=== PATIENT | female | born 1965 | race American Indian/Alaskan Native ===

== ENCOUNTER 2017-06-13 16:18 | Inpatient (IN) | payer MEDICARE, SELFPAY ==
[2017-06-13 16:18] VITALS: BMI 27.6
--- NOTE | 2017-06-13 17:36 | ED PDOC ---
HPI: Abdomen Chief Complaint (Provider): abdominal pain, back pain, vomiting History Per: Patient, Family History/Exam Limitations: no limitations Onset/Duration Of Symptoms: Days (2), Gradual Current Symptoms Are (Timing): Still Present Context: Food Location Of Pain/Discomfort: RUQ, LLQ, Other (back) Quality Of Discomfort: Sharp Associated Symptoms: Chills, Nausea, Loss Of Appetite, Back Pain, Urinary Symptoms. denies: Diarrhea Exacerbating Factors: None Alleviating Factors: None Last Bowel Movement: Days Ago (3) <Arnaud Lam III - Last Filed: 06/13/17 20:03> <Leland Rivas - Last Filed: 06/13/17 20:10> Time Seen by Provider: 06/13/17 16:45 Chief Complaint (Nursing): Abdominal Pain Additional Complaint(s): 51yo female c/o abdominal pain and distension, constipation, back pain and nausea starting yesterday afternoon. States currently on day 14 of oral antibiotic for UTI. Denies fever. Also notes "dizziness around the eyes". Denies change vision, headache or syncope. (Arnaud Lam III) Past Medical History Reviewed: Historical Data, Nursing Documentation, Vital Signs - Medical History PMH: Arthritis, Asthma, Depression, HTN, Personality Disorder, Schizophrenia ( on monthly invega), Sleep Apnea Denies: Diabetes, HIV, Chronic Kidney Disease, Seizures, Sexually Transmitted Disease - Surgical History Surgical History: Cholecystectomy (2 years ago) Other surgeries: scoliosis - Family History Family History: States: Unknown Family Hx - Living Arrangements Living Arrangements: With Family - Social History Current smoker - smoking cessation education provided: No Alcohol: None <Arnaud Lam III - Last Filed: 06/13/17 20:03> <Leland Rivas - Last Filed: 06/13/17 20:10> Vital Signs: Last Vital Signs Temp 100.5 F H 06/13/17 16:30 Pulse 134 H 06/13/17 16:30 Resp 18 06/13/17 16:30 BP 135/76 06/13/17 16:30 Pulse Ox 97 06/13/17 20:04 - Home Medications Home Medications: Ambulatory Orders Medication Instructions Recorded Acetaminophen [Tylenol 325mg tab] 500 mg PO Q6 PRN 06/13/17 Benztropine [Cogentin] 0.5 mg PO DAILY 06/13/17 Clonazepam [Klonopin] 0.5 mg PO DAILY 06/13/17 Duloxetine HCl [Duloxetine HCl] 60 mg PO DAILY 06/13/17 Esomeprazole Magnesium [Nexium] 40 mg PO DAILY 06/13/17 Meloxicam [Mobic] 15 mg PO DAILY 06/13/17 Montelukast Sodium [Singulair] 10 mg PO DAILY 06/13/17 Pregabalin [Lyrica] 50 mg PO BID 06/13/17 Salmeterol Xinafoate/Fluticaso 2 puff IH DAILY 06/13/17 [Advair Hfa 115/21] Sulfamethoxazole/Trimethoprim 160 - 800 mg PO BID 06/13/17 [Sulfamethoxazole-Tmp Ss Tablet] Tramadol HCl [Ultram] 50 mg PO TID PRN 06/13/17 amLODIPine [Norvasc] 5 mg PO DAILY 06/13/17 - Allergies Allergies/Adverse Reactions: Allergies Allergy/AdvReac Type Severity Reaction Status Date / Time Penicillins Allergy Unknown RASH Verified 06/13/17 16:32 Review of Systems Constitutional: Positive for: Malaise. Negative for: Fever, Chills ENT: Negative for: Nose Discharge, Throat Pain Cardiovascular: Negative for: Chest Pain, Palpitations Respiratory: Negative for: Cough, Shortness of Breath Gastrointestinal: Positive for: Nausea, Vomiting, Abdominal Pain, Constipation. Negative for: Diarrhea Genitourinary Female: Positive for: Dysuria, Hematuria Musculoskeletal: Positive for: Back Pain. Negative for: Neck Pain, Arm Pain, Leg Pain Skin: Negative for: Rash, Lesions, Jaundice Neurological: Positive for: Dizziness. Negative for: Weakness, Numbness, Altered Mental Status, Headache Psych: Negative for: Depression <Arnaud Lam III - Last Filed: 06/13/17 20:03> Physical Exam - Reviewed Nursing Documentation Reviewed: Yes Vital Signs Reviewed: Yes - Physical Exam Appears: Positive for: Well, Non-toxic, No Acute Distress Head Exam: Positive for: ATRAUMATIC, NORMAL INSPECTION, NORMOCEPHALIC Skin: Positive for: Normal Color, Warm, DRY Eye Exam: Positive for: EOMI, PERRL, Other (mild exopthalmos, mild injection b/l ). Negative for: Periorbital tenderness ENT: Positive for: Normal ENT Inspection Neck: Positive for: Normal, Painless ROM Cardiovascular/Chest: Positive for: Regular Rate, Rhythm Respiratory: Positive for: CNT, Normal Breath Sounds Gastrointestinal/Abdominal: Positive for: Tenderness, Distended. Negative for: Hernia Back: Positive for: L CVA Tenderness, R CVA Tenderness Extremity: Positive for: Normal ROM Neurologic/Psych: Positive for: Alert, Oriented. Negative for: Motor/Sensory Deficits <Arnaud Lam III - Last Filed: 06/13/17 20:03> - Laboratory Results Result Diagrams: 06/13/17 17:35 06/13/17 17:35 - ECG O2 Sat by Pulse Oximetry: 97 <Arnaud Lam III - Last Filed: 06/13/17 20:03> - Laboratory Results Result Diagrams: 06/13/17 17:35 06/13/17 17:35 <Leland Rivas - Last Filed: 06/13/17 20:10> Medical Decision Making <Arnaud Lam III - Last Filed: 06/13/17 20:03> <Leland Rivas - Last Filed: 06/13/17 20:10> Medical Decision Making: workup for abd pain w low grade fever initiated bloodwork, VBG, cultures, CXR, Abd pelv CT and IVF initiated 19:00 Patient will be signed out to Dr. Rivas pending CT. (Anraud Lam III) Disposition - Patient ED Disposition Is Patient to be Admitted: Transfer of Care - Disposition Disposition: Transfer of Care Disposition Time: 19:07 Patient Signed Over To: Leland Rivas Handoff Comments: pending CT and urine results <Arnaud Lam III - Last Filed: 06/13/17 20:03> <Leland Rivas - Last Filed: 06/13/17 20:10> - Clinical Impression Clinical Impression: Abdominal pain - Disposition Forms: [place] ([place])
[2017-06-13 17:54] LABS: ALBUMIN 3.4 g/dL (3.5-5.0); ALT/SGPT 29 U/L (9-52); AST/SGOT 16 U/L (14-36); BLOOD UREA NITROGEN 16 mg/dl (7-17); CALCIUM 8.8 mg/dL (8.4-10.2); GFR AFRICAN-AMERICAN > 60; GFR NON-AFRICAN AMERICAN 58; LIPASE 24 U/L (23-300)
[2017-06-13 18:03] LABS: BASO % 0.4 % (0.0-2.0); EOS # 0.1 K/uL (0.0-0.7); EOS % 1.8 % (0.0-4.0); HEMOGLOBIN 11.7 g/dL (12.0-16.0); LYMPH # 0.4 K/uL (1.0-4.3); LYMPH % 5.3 % (20.0-40.0); MEAN CELL VOLUME 77.4 fl (81.0-99.0); MEAN CORPUSCULAR HEMOGLOBIN 24.7 pg (27.0-31.0); MEAN CORPUSCULAR HGB CONC 31.9 g/dL (33.0-37.0); MEAN PLATELET VOLUME 8.4 fl (7.2-11.7); MONO # 0.5 K/uL (0.0-0.8); MONO % 6.1 % (0.0-10.0); NEUT % 86.4 % (50.0-75.0); PLATELET COUNT 346 K/uL (130-400); RBC 4.74 Mil/uL (3.80-5.20); WHITE BLOOD COUNT 8.1 K/uL (4.8-10.8)
[2017-06-13 18:08] LABS: INR 1.2 (0.9-1.2); PARTIAL THROMBOPLASTIN TIME 31.3 Seconds (25.6-37.1); PROTHROMBIN TIME 13.1 Seconds (9.8-13.1)
[2017-06-13] MEDS ORDERED: Sodium Chloride 0.9% 100 ML ONE (18:29)
[2017-06-13] MEDS ORDERED: Iohexol 300 100 ML IJ ONE (18:29)
[2017-06-13 19:23] LABS: GRANULAR CAST 2 /lpf (0-1); SQUAMOUS EPITHIAL 8 /hpf (0-5); URINE BILIRUBIN NEGATIVE (NEGATIVE); URINE BLOOD NEGATIVE (NEGATIVE); URINE CLARITY CLOUDY (Clear); URINE COLOR AMBER (YELLOW); URINE GLUCOSE (UA) NEG (Normal); URINE LEUKOCYTE ESTERASE MOD Leu/uL (Negative); URINE PROTEIN 30 mg/dL (NEGATIVE)
[2017-06-13 20:06] LABS: VENOUS BLOOD GAS BASE EXCESS -0.5 mmol/L (0.0-2.0); VENOUS BLOOD GAS PCO2 39 mmHg (40-60); VENOUS BLOOD GAS PO2 40 mm/Hg (30-55)
--- NOTE | 2017-06-13 20:11 | ED PDOC ---
"- Laboratory Results Result Diagrams: 06/13/17 17:35 06/13/17 17:35 - ECG O2 Sat by Pulse Oximetry: 97 Medical Decision Making Medical Decision Makin:00 Patient transfer to nm by Dr. Lam pending CT. 20:30 EXAM: CT Abdomen and Pelvis With Intravenous Contrast EXAM DATE/TIME: 06/13/2017 4:56 PM CLINICAL HISTORY: 51 years old, female; Pain; Abdominal pain; Generalized; Additional info: Back pain, abd distension vomiting, constipation TECHNIQUE: Axial computed tomography images of the abdomen and pelvis with intravenous contrast. All CT scans at this facility use one or more dose reduction techniques, viz.: automated exposure control; ma/kV adjustment per patient size (including targeted exams where dose is matched to indication; i.e. head); or iterative reconstruction technique. Coronal and sagittal reformatted images were created and reviewed. CONTRAST: 95 mL of omnipaque 300 administered intravenously. COMPARISON: Prior CT abdomen and pelvis of 2011-11-19. FINDINGS: LIMITATIONS: Streak artifact from metallic hardware in the spine. LOWER THORAX: Moderate right pleural effusion, a new finding, incompletely seen. Small left pleural effusion, a new finding. Small pericardial effusion, a new finding. No evidence of diffuse pulmonary vascular congestion. ABDOMEN: LIVER: Fatty infiltration of the liver. GALLBLADDER AND BILE DUCTS: Cholecystectomy clips. PANCREAS: No CT evidence of acute pancreatitis. SPLEEN: No acute abnormality of the spleen identified. ADRENALS: No acute abnormality of the adrenal glands identified. KIDNEYS AND URETERS: No acute abnormality of the kidneys identified. No evidence of significant hydrouereteronephrosis. ELEUTERIO RAMIREZ | Final Radiology Report CONFIDENTIALITY STATEMENT This report is intended only for use by the referring physician, and only in accordance with law. If you received this in error, call [phone]. Page 2 of 2 STOMACH AND BOWEL: Stool is noted throughout the right colon, which is top normal in caliber to mildly dilated. No definite transition point is seen, and the findings are most likely secondary to fecal retention/constipation. Colonic diverticulosis, with no evidence of acute diverticulitis. Otherwise, no significant abnormality of the bowel is identified. No evidence of small bowel obstruction. No acute abnormality of the stomach or duodenum identified. APPENDIX: Appendix is seen, and is within normal limits in appearance. PELVIS: BLADDER: Diffuse thickening of the bladder wall. REPRODUCTIVE: Again seen is diffuse uterine enlargement, with an appearance most compatible with multiple uterine fibroids. The largest of these is a posterior fibroid, measuring 7.4 x 6.2 cm. No evidence of large adnexal masses. ABDOMEN and PELVIS: INTRAPERITONEAL SPACE: No evidence of free intraperitoneal air or fluid. BONES/JOINTS: Metallic fixation hardware in the thoracic and lumbar spine. Chronic post operative changes involving the left iliac bone. SOFT TISSUES: No acute abnormality of the visualized soft tissues is seen. VASCULATURE: No evidence of abdominal aortic aneurysm. No evidence of periaortic hemorrhage. LYMPH NODES: No evidence of diffuse lymphadenopathy. IMPRESSION: - Moderate right pleural effusion. There are also small pericardial and left pleural effusions. - Bladder wall thickening. This is a nonspecific finding, but can be seen with cystitis. Recommend clinical correlation. - Otherwise, no evidence of significant acute process. - Colonic findings which are most likely secondary to fecal retention/ constipation. - See above for remaining findings. Thank you for allowing us to participate in the care of your patient. Dictated and Authenticated by: Francy Puente MD 06/13/2017 8:39 PM Eastern Time ([place] & [place]) Patient states she does have cough and congestion but denies CP/SOB, currently has not symptoms of cardiac effusion and certainly not tamponade, however patient also has pleural effusions. Patient also has cystitis on CT and UTI on UA, will give levoquin to cover. Patient has fever, tachycardia, and source, therefore septic, however has normal lactate. Will admit for further workup, possibly pleural effusion and pericardial effusion are due to autoimmune rather than infectious process? Unclear at htis time. Will admit to family practice service. Disposition - Clinical Impression Clinical Impression: UTI (urinary tract infection), Sepsis, Pleural effusion - POA Present On Arrival: None - Disposition Disposition: Hospitalized as Observation Patient Disposition Time: 20:40 Condition: FAIR"
--- NOTE | 2017-06-13 20:39 | CT ---
EXAM: CT Abdomen and Pelvis With Intravenous Contrast EXAM DATE/TIME: 06/13/2017 4:56 PM CLINICAL HISTORY: 51 years old, female; Pain; Abdominal pain; Generalized; Additional info: Back pain, abd distension vomiting, constipation TECHNIQUE: Axial computed tomography images of the abdomen and pelvis with intravenous contrast. All CT scans at this facility use one or more dose reduction techniques, viz.: automated exposure control; ma/kV adjustment per patient size (including targeted exams where dose is matched to indication; i.e. head); or iterative reconstruction technique. Coronal and sagittal reformatted images were created and reviewed. CONTRAST: 95 mL of omnipaque 300 administered intravenously. COMPARISON: Prior CT abdomen and pelvis of 2011-11-19. FINDINGS: LIMITATIONS: Streak artifact from metallic hardware in the spine. LOWER THORAX: Moderate right pleural effusion, a new finding, incompletely seen. Small left pleural effusion, a new finding. Small pericardial effusion, a new finding. No evidence of diffuse pulmonary vascular congestion. ABDOMEN: LIVER: Fatty infiltration of the liver. GALLBLADDER AND BILE DUCTS: Cholecystectomy clips. PANCREAS: No CT evidence of acute pancreatitis. SPLEEN: No acute abnormality of the spleen identified. ADRENALS: No acute abnormality of the adrenal glands identified. KIDNEYS AND URETERS: No acute abnormality of the kidneys identified. No evidence of significant hydrouereteronephrosis. STOMACH AND BOWEL: Stool is noted throughout the right colon, which is top normal in caliber to mildly dilated. No definite transition point is seen, and the findings are most likely secondary to fecal retention/constipation. Colonic diverticulosis, with no evidence of acute diverticulitis. Otherwise, no significant abnormality of the bowel is identified. No evidence of small bowel obstruction. No acute abnormality of the stomach or duodenum identified. APPENDIX: Appendix is seen, and is within normal limits in appearance. PELVIS: BLADDER: Diffuse thickening of the bladder wall. REPRODUCTIVE: Again seen is diffuse uterine enlargement, with an appearance most compatible with multiple uterine fibroids. The largest of these is a posterior fibroid, measuring 7.4 x 6.2 cm. No evidence of large adnexal masses. ABDOMEN and PELVIS: INTRAPERITONEAL SPACE: No evidence of free intraperitoneal air or fluid. BONES/JOINTS: Metallic fixation hardware in the thoracic and lumbar spine. Chronic post operative changes involving the left iliac bone. SOFT TISSUES: No acute abnormality of the visualized soft tissues is seen. VASCULATURE: No evidence of abdominal aortic aneurysm. No evidence of periaortic hemorrhage. LYMPH NODES: No evidence of diffuse lymphadenopathy. IMPRESSION: - Moderate right pleural effusion. There are also small pericardial and left pleural effusions. - Bladder wall thickening. This is a nonspecific finding, but can be seen with cystitis. Recommend clinical correlation. - Otherwise, no evidence of significant acute process. - Colonic findings which are most likely secondary to fecal retention/constipation. - See above for remaining findings.
[2017-06-13] MEDS ORDERED: levoFLOXacin 750 mg in D5W 150 ML BAG IVPB STA (20:46)
[2017-06-13] MEDS ORDERED: levoFLOXacin 750 mg in D5W 750 MG/150 ML BAG IVPB ONE (20:59)
[2017-06-13 21:11] LABS: ANISOCYTOSIS SLIGHT; EOSINOPHIL 3 % (0-7); LYMPHOCYTE 10 % (20-50); MICROCYTOSIS SLIGHT; MONOCYTE 7 % (0-10); NEUTROPHIL 80 % (42-75); PLATELET ESTIMATE NORMAL (NORMAL); POIKILOCYTOSIS SLIGHT; TOTAL CELLS COUNTED 100
[2017-06-13 21:12] LABS: HYPOCHROMIC SLIGHT; OVALOCYTES SLIGHT; POLYCHROMIC SLIGHT
[2017-06-13] MEDS ORDERED: Sodium Chloride 0.9% 1,000 ML IV STA (21:13)
--- NOTE | 2017-06-13 23:49 | CP.PCM.HP ---
History of Present Illness - History of Present Illness History of Present Illness: cc: I have a UTI 51 year old female presented to ED with complaints of UTI, abdominal pain, constipation and itchy eyes. Reports she has been on antibiotics for her UTI for about 2 weeks. She has had night sweats for 2 days, dark urine, no dysuria or malodorous urine. Two day history of back and abdominal pain: left abdomen / right lateral chest wall worst. Began having nausea today.She has constipation, last BM 3 days ago, hard stools. Eyes are red and itchy for past day, 'feel swollen'. Denies allergies, no new soaps/sheets or lotions. She las saw her PMD, 06/12/2017, urine culture done while on abx negative. PMH: asthma, schizoaffective disorder-depression, HTN, chronic back pain Medications: as per med rec Allergies: penicillins Social: no etoh, tobacco or drug use Surgical Hx: scoliosis sx, cholecystectomy Family hx: father -heart disease, mother: DM, HTN Present on Admission - Present on Admission Any Indicators Present on Admission: No Review of Systems - Constitutional Constitutional: Excessive Sweating, Night Sweats. absent: Fever, Weakness - EENT Eyes: Itchy Eyes. absent: Change in Vision, Discharge Ears: absent: Ear Discharge, Tinnitus Nose/Mouth/Throat: absent: Nasal Discharge - Cardiovascular Cardiovascular: Chest Pain (right lateral chest). absent: Dyspnea, Leg Edema, Rapid Heart Rate, Syncope Additional comments: pain with deep inspiration - Respiratory Respiratory: absent: Cough, Dyspnea, Dyspnea on Exertion, Wheezing, Stridor - Gastrointestinal Gastrointestinal: Abdominal Pain (left side worst), Constipation, Nausea. absent: Diarrhea, Dysphagia, Hematochezia, Vomiting - Integumentary Integumentary: absent: Rash - Neurological Neurological: absent: Confusion, Dizziness, Memory Loss, Syncope, Vertigo, Weakness Past Patient History - Infectious Disease Hx of Infectious Diseases: None - Past Medical History & Family History Past Medical History?: Yes Past Family History: Reviewed and not pertinent - Past Social History Smoking Status: Never Smoked Alcohol: None Drugs: Denies - CARDIAC Hx Cardiac Disorders: Yes - PULMONARY Hx Respiratory Disorders: Yes - NEUROLOGICAL Hx Seizures: No - HEENT Hx HEENT Problems: No - RENAL Hx Chronic Kidney Disease: No - ENDOCRINE/METABOLIC Hx Endocrine Disorders: No - HEMATOLOGICAL/ONCOLOGICAL Hx Human Immunodeficiency Virus (HIV): No - INTEGUMENTARY Hx Dermatological Problems: No - MUSCULOSKELETAL/RHEUMATOLOGICAL Hx Arthritis: Yes - GASTROINTESTINAL Hx Gastrointestinal Disorders: No - GENITOURINARY/GYNECOLOGICAL Hx Sexually Transmitted Disorders: No - PSYCHIATRIC Hx Psychophysiologic Disorder: Yes - SURGICAL HISTORY Hx Cholecystectomy: Yes (2 years ago) - ANESTHESIA Hx Anesthesia: Yes Hx Anesthesia Reactions: No Meds Allergies/Adverse Reactions: Allergies Allergy/AdvReac Type Severity Reaction Status Date / Time Penicillins Allergy Unknown RASH Verified 06/13/17 16:32 Physical Exam - Constitutional Appears: Well, Non-toxic, No Acute Distress - Head Exam Head Exam: ATRAUMATIC, NORMAL INSPECTION, NORMOCEPHALIC - Eye Exam Eye Exam: Conjunctival injection - ENT Exam ENT Exam: Mucous Membranes Moist - Neck Exam Neck exam: Positive for: Normal Inspection. Negative for: Lymphadenopathy - Respiratory Exam Respiratory Exam: Decreased Breath Sounds (right lung base, left lung base), Clear to Auscultation Bilateral, NORMAL BREATHING PATTERN. absent: Rhonchi, Wheezes, Respiratory Distress - Cardiovascular Exam Cardiovascular Exam: Tachycardia, REGULAR RHYTHM, +S1, +S2. absent: Clicks, JVD , Rubs - GI/Abdominal Exam GI & Abdominal Exam: Normal Bowel Sounds, Soft. absent: Guarding, Organomegaly , Rebound, Tenderness Additional comments: typmanic to percussion - Extremities Exam Extremities exam: Negative for: pedal edema, tenderness - Back Exam Back exam: CVA tenderness (L) (mild) - Neurological Exam Neurological exam: Alert, CN II-XII Intact, Oriented x3 Results - Vital Signs Recent Vital Signs: Last Vital Signs Temp 99.1 F 06/13/17 22:44 Pulse 101 H 06/13/17 22:44 Resp 18 06/13/17 22:44 BP 124/74 06/13/17 22:44 Pulse Ox 96 06/13/17 22:44 - Labs Result Diagrams: 06/13/17 17:35 06/13/17 17:35 Labs: Laboratory Results - last 24 hr 06/13/17 06/13/17 06/13/17 17:35 17:35 17:35 WBC 8.1 RBC 4.74 Hgb 11.7 L Hct 36.7 MCV 77.4 L MCH 24.7 L MCHC 31.9 L RDW 15.0 H Plt Count 346 MPV 8.4 Neut % (Auto) 86.4 H Lymph % (Auto) 5.3 L [place] % (Auto) 6.1 Eos % (Auto) 1.8 Baso % (Auto) 0.4 Neut # (Auto) 7.0 Lymph # (Auto) 0.4 L [place] # (Auto) 0.5 Eos # (Auto) 0.1 Baso # (Auto) 0.0 Neutrophils % (Manual) 80 H Lymphocytes % (Manual) 10 L Monocytes % (Manual) 7 Eosinophils % (Manual) 3 Platelet Estimate Normal Polychromasia Slight Hypochromasia (manual) Slight Poikilocytosis (manual Slight Anisocytosis (manual) Slight Microcytosis (manual) Slight Ovalocytes Slight PT 13.1 INR 1.2 APTT 31.3 pO2 VBG pH VBG pCO2 VBG HCO3 VBG Total CO2 VBG O2 Sat (Calc) VBG Base Excess VBG Potassium Glucose Lactate FiO2 Sodium 140 Potassium 3.8 Chloride 106 Carbon Dioxide 22 Anion Gap 16 BUN 16 Creatinine 1.0 Est GFR ( Amer) > 60 Est GFR (Non-Af Amer) 58 Random Glucose 127 H Calcium 8.8 Total Bilirubin 0.5 AST 16 ALT 29 Alkaline Phosphatase 85 Troponin I Total Protein 6.9 Albumin 3.4 L Globulin 3.5 Albumin/Globulin Ratio 1.0 Lipase 24 TSH 3rd Generation Venous Blood Potassium Urine Color Urine Clarity Urine pH Ur Specific [place] Urine Protein Urine Glucose (UA) Urine Ketones Urine Blood Urine Nitrate Urine Bilirubin Urine Urobilinogen Ur Leukocyte Esterase Urine RBC (Auto) Urine Microscopic WBC Ur Squamous Epith Cells Granular Casts (Auto) 06/13/17 06/13/17 06/13/17 18:54 19:33 20:10 WBC RBC Hgb Hct MCV MCH MCHC RDW Plt Count MPV Neut % (Auto) Lymph % (Auto) [place] % (Auto) Eos % (Auto) Baso % (Auto) Neut # (Auto) Lymph # (Auto) [place] # (Auto) Eos # (Auto) Baso # (Auto) Neutrophils % (Manual) Lymphocytes % (Manual) Monocytes % (Manual) Eosinophils % (Manual) Platelet Estimate Polychromasia Hypochromasia (manual) Poikilocytosis (manual Anisocytosis (manual) Microcytosis (manual) Ovalocytes PT INR APTT pO2 40 VBG pH 7.40 VBG pCO2 39 L VBG HCO3 24.1 VBG Total CO2 25.4 VBG O2 Sat (Calc) 82.2 H VBG Base Excess -0.5 L VBG Potassium 3.8 Glucose 108 H Lactate 1.4 FiO2 21.0 Sodium 137.0 Potassium Chloride 105.0 Carbon Dioxide Anion Gap BUN Creatinine Est GFR ( Amer) Est GFR (Non-Af Amer) Random Glucose Calcium Total Bilirubin AST ALT Alkaline Phosphatase Troponin I Total Protein Albumin Globulin Albumin/Globulin Ratio Lipase TSH 3rd Generation 0.63 Venous Blood Potassium 3.8 Urine Color Shyla Urine Clarity Cloudy Urine pH 5.0 Ur Specific [place] 1.031 H Urine Protein 30 Urine Glucose (UA) Neg Urine Ketones Negative Urine Blood Negative Urine Nitrate Negative Urine Bilirubin Negative Urine Urobilinogen 2.0 H Ur Leukocyte Esterase Mod Urine RBC (Auto) 3 Urine Microscopic WBC 31 H Ur Squamous Epith Cells 8 H Granular Casts (Auto) 2 06/13/17 21:00 WBC RBC Hgb Hct MCV MCH MCHC RDW Plt Count MPV Neut % (Auto) Lymph % (Auto) [place] % (Auto) Eos % (Auto) Baso % (Auto) Neut # (Auto) Lymph # (Auto) [place] # (Auto) Eos # (Auto) Baso # (Auto) Neutrophils % (Manual) Lymphocytes % (Manual) Monocytes % (Manual) Eosinophils % (Manual) Platelet Estimate Polychromasia Hypochromasia (manual) Poikilocytosis (manual Anisocytosis (manual) Microcytosis (manual) Ovalocytes PT INR APTT pO2 VBG pH VBG pCO2 VBG HCO3 VBG Total CO2 VBG O2 Sat (Calc) VBG Base Excess VBG Potassium Glucose Lactate FiO2 Sodium Potassium Chloride Carbon Dioxide Anion Gap BUN Creatinine Est GFR ( Amer) Est GFR (Non-Af Amer) Random Glucose Calcium Total Bilirubin AST ALT Alkaline Phosphatase Troponin I < 0.0120 Total Protein Albumin Globulin Albumin/Globulin Ratio Lipase TSH 3rd Generation Venous Blood Potassium Urine Color Urine Clarity Urine pH Ur Specific [place] Urine Protein Urine Glucose (UA) Urine Ketones Urine Blood Urine Nitrate Urine Bilirubin Urine Urobilinogen Ur Leukocyte Esterase Urine RBC (Auto) Urine Microscopic WBC Ur Squamous Epith Cells Granular Casts (Auto) - Imaging and Cardiology CT scan - abdomen Status: Image reviewed by me, Report reviewed by me Additional comment: FINDINGS: LIMITATIONS: Streak artifact from metallic hardware in the spine. LOWER THORAX: Moderate right pleural effusion, a new finding, incompletely seen. Small left pleural effusion, a new finding. Small pericardial effusion , a new finding. No evidence of diffuse pulmonary vascular congestion. ABDOMEN: LIVER: Fatty infiltration of the liver. GALLBLADDER AND BILE DUCTS: Cholecystectomy clips. PANCREAS: No CT evidence of acute pancreatitis. SPLEEN: No acute abnormality of the spleen identified. ADRENALS: No acute abnormality of the adrenal glands identified. KIDNEYS AND URETERS: No acute abnormality of the kidneys identified. No evidence of significant hydrouereteronephrosis. STOMACH AND BOWEL: Stool is noted throughout the right colon, which is top normal in caliber to mildly dilated. No definite transition point is seen, and the findings are most likely secondary to fecal retention/constipation. Colonic diverticulosis, with no evidence of acute diverticulitis. Otherwise, no significant abnormality of the bowel is identified. No evidence of small bowel obstruction. No acute abnormality of the stomach or duodenum identified. APPENDIX: Appendix is seen, and is within normal limits in appearance. PELVIS: BLADDER: Diffuse thickening of the bladder wall. REPRODUCTIVE: Again seen is diffuse uterine enlargement, with an appearance most compatible with multiple uterine fibroids. The largest of these is a posterior fibroid, measuring 7.4 x 6.2 cm. No evidence of large adnexal masses. ABDOMEN and PELVIS: INTRAPERITONEAL SPACE: No evidence of free intraperitoneal air or fluid. BONES/JOINTS: Metallic fixation hardware in the thoracic and lumbar spine. Chronic post operative changes involving the left iliac bone. SOFT TISSUES: No acute abnormality of the visualized soft tissues is seen. VASCULATURE: No evidence of abdominal aortic aneurysm. No evidence of periaortic hemorrhage. LYMPH NODES: No evidence of diffuse lymphadenopathy. IMPRESSION: - Moderate right pleural effusion. There are also small pericardial and left pleural effusions. - Bladder wall thickening. This is a nonspecific finding, but can be seen with cystitis. Recommend clinical correlation. - Otherwise, no evidence of significant acute process. - Colonic findings which are most likely secondary to fecal retention/constipation. - See above for remaining findings. Assessment & Plan (1) UTI (urinary tract infection) Assessment and Plan: 51 year old female admitted for failed outpatient management of UTI, pleural effusion and pericardial effusion. She has lateral chest pain, no dyspnea. Abdominal pain due to constipation vs pyelonephritis -Levaquin 750mg -Toradol for pain -zofran for nausea -echo to assess pericardial effusions -repeat cbc/bmp Status: Acute (2) Pleural effusion Assessment and Plan: moderate sized pleural effusion, etiology unknown likely to small for tap Status: Acute (3) Pericardial effusion Assessment and Plan: small pericardial effusion on CT, echo to assess effusion patient hemodynamically stable telemetry monitoring Status: Acute (4) Obesity (BMI 30.0-34.9) Status: Chronic (5) Constipation Assessment and Plan: likely chronic, possible etiology of abdominal pain -seen on CT -last BM 3 days ago -start miralax Status: Acute (6) Asthma Assessment and Plan: mild persistent, well controlled Status: Chronic (7) Prophylactic measure Assessment and Plan: lovenox for dvt prophylaxis Status: Acute
[2017-06-14 05:57] LABS: CALCIUM 8.9 mg/dL (8.4-10.2)
[2017-06-14] MEDS ORDERED: Pneumococcal 23-Valent Vaccine IM ONE (06:00)
[2017-06-14 06:08] LABS: BASO % 0.4 % (0.0-2.0); EOS # 0.2 K/uL (0.0-0.7); EOS % 4.9 % (0.0-4.0); HEMOGLOBIN 11.8 g/dL (12.0-16.0); LYMPH # 0.8 K/uL (1.0-4.3); LYMPH % 16.3 % (20.0-40.0); MEAN CELL VOLUME 77.8 fl (81.0-99.0); MEAN CORPUSCULAR HGB CONC 32.1 g/dL (33.0-37.0); MEAN PLATELET VOLUME 8.2 fl (7.2-11.7); MONO # 0.4 K/uL (0.0-0.8); MONO % 7.2 % (0.0-10.0); NEUT # 3.6 K/uL (1.8-7.0); NEUT % 71.2 % (50.0-75.0); NRBC % 0.3 % (0.0-0.0); RBC 4.72 Mil/uL (3.80-5.20); RED CELL DISTRIBUTION WIDTH 15.4 % (11.5-14.5)
[2017-06-14] MEDS ORDERED: FLUTICASONE IH SCH (09:00)
[2017-06-14] MEDS ORDERED: levoFLOXacin 750 mg in D5W 150 ML BAG IVPB SCH (09:00)
[2017-06-14] MEDS ORDERED: levoFLOXacin 750 mg in D5W 750 MG/150 ML BAG IVPB SCH (09:00)
[2017-06-14] MEDS ORDERED: SALMETEROL IH SCH (09:00)
[2017-06-14] MEDS: Enoxaparin 40 mg Syringe SC SCH (09:06)
[2017-06-14] MEDS: Pantoprazole 40 mg EC Tab PO SCH (09:07)
[2017-06-14] MEDS: Fluticasone-Salmeterol 250-50mcg Diskus IH SCH ×2 (09:08→21:40)
--- NOTE | 2017-06-14 09:56 | RAD ---
HISTORY: SOB COMPARISON: 11/21/2011 FINDINGS: LUNGS: No active pulmonary disease. PLEURA: No significant pleural effusion identified, no pneumothorax apparent. CARDIOVASCULAR: Normal. OSSEOUS STRUCTURES: Harper lidia noted. Mild thoracic dextroscoliotic curvature. VISUALIZED UPPER ABDOMEN: Normal. OTHER FINDINGS: None. IMPRESSION: No active disease.
[2017-06-14] MEDS ORDERED: Alum-Mag Hydrox-Simethicone Susp (30 mL) PO PRN ×2 (10:15)
--- NOTE | 2017-06-14 11:51 | CP.PCM.PN ---
Subjective - Date & Time of Evaluation Date of Evaluation: 06/14/17 Time of Evaluation: 08:00 - Subjective Subjective: Pt seen and examined in the am. Lethargic but arousable to voice. Reports burning epigastric abdominal pain that is radiating to the back and posterior rib pain. Denies n/v/dysuria/fever/chills/SOB/Cough. Feels constipated. No BM overnight. Objective - Vital Signs/Intake and Output Vital Signs (last 24 hours): Temp Pulse Resp BP Pulse Ox 98.6 F 11 L 20 126/79 97 06/14/17 08:00 06/14/17 09:07 06/14/17 08:00 06/14/17 09:07 06/14/17 08:00 - Medications Medications: Current Medications Al Hydrox/Mg Hydrox/Simethicone (Maalox Plus 30 Ml) 30 ml PO Q4 PRN PRN Reason: Indigestion / Heartburn Amlodipine Besylate (Norvasc) 5 mg PO DAILY [facility] Last Admin: 06/14/17 09:07 Dose: 5 mg Benztropine Mesylate (Cogentin) 0.5 mg PO DAILY [facility] Last Admin: 06/14/17 09:07 Dose: 0.5 mg Clonazepam (Klonopin) 0.5 mg PO DAILY [facility] Last Admin: 06/14/17 09:15 Dose: 0.5 mg Duloxetine HCl (Cymbalta) 60 mg PO DAILY [facility] Last Admin: 06/14/17 09:07 Dose: 60 mg Enoxaparin Sodium (Lovenox) 40 mg SC DAILY [facility] PRN Reason: Protocol Last Admin: 06/14/17 09:06 Dose: 40 mg Famotidine (Pepcid) 20 mg PO DAILY [facility] Ketorolac Tromethamine (Toradol) 15 mg IVP Q6 PRN PRN Reason: Pain, moderate (4-7) Stop: 06/17/17 22:07 Last Admin: 06/14/17 04:47 Dose: 15 mg Montelukast Sodium (Singulair) 10 mg PO DAILY [facility] Last Admin: 06/14/17 09:07 Dose: 10 mg Ondansetron HCl (Zofran Inj) 4 mg IVP Q6 PRN PRN Reason: Nausea/Vomiting Pantoprazole Sodium (Protonix Ec Tab) 40 mg PO DAILY [facility] Last Admin: 06/14/17 09:07 Dose: 40 mg Polyethylene Glycol (Miralax) 17 gm PO HS [facility] Pregabalin (Lyrica) 50 mg PO BID [facility] Last Admin: 06/14/17 09:15 Dose: 50 mg Fluticasone/Salmeterol (Advair Diskus 250/50) 1 puff IH Q12 [facility] Last Admin: 06/14/17 09:08 Dose: 1 puff Senna/Docusate Sodium (Senokot S 50 Mg-8.6 Mg) 2 tab PO HS [facility] Tramadol HCl (Ultram) 50 mg PO TID PRN PRN Reason: Pain, moderate (4-7) - Labs Labs: 06/14/17 04:20 06/14/17 04:20 PT 13.1 Seconds (9.8-13.1) 06/13/17 17:35 INR 1.2 (0.9-1.2) 06/13/17 17:35 APTT 31.3 Seconds (25.6-37.1) 06/13/17 17:35 - Constitutional Appears: Well, Non-toxic, No Acute Distress - Head Exam Head Exam: NORMAL INSPECTION - Eye Exam Eye Exam: Normal appearance - ENT Exam ENT Exam: Mucous Membranes Moist - Respiratory Exam Respiratory Exam: Clear to Ausculation Bilateral. absent: Rales, Wheezes, Stridor - Cardiovascular Exam Cardiovascular Exam: REGULAR RHYTHM, +S1, +S2. absent: Murmur - GI/Abdominal Exam GI & Abdominal Exam: Soft, Tenderness (Epigastric tenderness), Normal Bowel Sounds. absent: Distended, Guarding - Extremities Exam Extremities Exam: Normal Inspection - Back Exam Back Exam: CVA tenderness (R) - Neurological Exam Neurological Exam: Alert, Awake, Oriented x3 - Psychiatric Exam Psychiatric exam: Normal Affect - Skin Skin Exam: Normal Color Assessment and Plan - Assessment and Plan (Free Text) Assessment: 51 year old female admitted for failed outpatient management of UTI, pleural effusion and pericardial effusion. Abdominal Pain Likely related to Constipation vs GERD/Peptic Ulcer Disease -Abdominal CT- large stool burden, renal wnl, bladder wall thickening Levaquin discontinued- no urinary symptoms, fever, or leukocytosis Toradol for pain Zofran for nausea Bowel Regimen: Miralax, Senakot Rantidine Protonix Pleural Effusion Unknown etiology. Need to rule out PE moderate sized pleural effusion, etiology unknown likely to small for tap F/U CTA Pericardial Effusion small pericardial effusion on CT, echo to assess effusion patient hemodynamically stable telemetry monitoring F/U Echo HTN -C/w Norvasc, held today because BP was low Obesity (BMI 30.9) Chronic Asthma, mild persistence well controlled c/w home meds DVT ppx lovenox Diet regular Full Code
[2017-06-14] MEDS ORDERED: Sodium Chloride 0.9% 100 ML ONE (16:11)
[2017-06-14] MEDS ORDERED: Iodixanol 320 MG/ML 100 ML BOTTLE IV ONE (16:11)
[2017-06-14] MEDS ORDERED: Magnesium Hydroxide Susp 30 ml UD PO SCH (17:00)
--- NOTE | 2017-06-14 18:16 | CT ---
PROCEDURE: CT Chest with contrast (Pulmonary Angiogram) HISTORY: Rule out PE and evaluate Pleural effusion COMPARISON: Plain radiograph from 06/13/2017. TECHNIQUE: Axial computed tomography images were obtained of the chest in the pulmonary arterial phase of enhancement. Coronal and sagittal reformatted images were created and reviewed. Intravenous contrast dose: 65 mL Visipaque 320 Radiation dose: Total exam DLP = 370.64 mGy-cm. This CT exam was performed using one or more of the following dose reduction techniques: Automated exposure control, adjustment of the mA and/or kV according to patient size, and/or use of iterative reconstruction technique. FINDINGS: PULMONARY ARTERIES: There are no filling defects in the pulmonary arteries to suggest acute pulmonary embolism. AORTA: No acute findings. No thoracic aortic aneurysm. LUNGS: No nodule, mass or pulmonary consolidation. PLEURAL SPACES: There is a small right pleural effusion. No left pleural effusion. There is fluid in the left major fissure. No pneumothorax. HEART: The heart is normal in size. No pericardial effusion. LYMPH NODES: No pathologic lymphadenopathy. BONES, CHEST WALL: There is dextroscoliosis in the thoracic spine. Status post posterior spinal fixation. . No fracture or destructive lesion OTHER FINDINGS: Unremarkable. IMPRESSION: No CTA evidence for acute pulmonary embolism. Small right pleural effusion
--- NOTE | 2017-06-14 18:36 | CARD ---
APPROVED REPORT EKG Measurement Heart [id number] <Conclusion> Sinus tachycardia Septal infarct, age undetermined Abnormal ECG
[2017-06-14] MEDS: Docusate-Senna 50 mg-8.6 mg Tab PO SCH (21:41)
[2017-06-14] MEDS ORDERED: POLYETHYLENE GLYCOL 3350 17 GM/Dose PACKET PO SCH (22:00)
--- NOTE | 2017-06-15 07:04 | CP.PCM.PN ---
Objective - Vital Signs/Intake and Output Vital Signs (last 24 hours): Temp Pulse Resp BP Pulse Ox 97.8 F 94 H 18 126/85 97 06/15/17 05:49 06/15/17 05:49 06/15/17 05:49 06/15/17 05:49 06/15/17 05:49 - Medications Medications: Current Medications Al Hydrox/Mg Hydrox/Simethicone (Maalox Plus 30 Ml) 30 ml PO Q4 PRN PRN Reason: Indigestion / Heartburn Amlodipine Besylate (Norvasc) 5 mg PO DAILY [facility] Last Admin: 06/14/17 09:07 Dose: 5 mg Benztropine Mesylate (Cogentin) 0.5 mg PO DAILY [facility] [place] Last Admin: 06/14/17 09:07 Dose: 0.5 mg Bisacodyl (Dulcolax) 10 mg OR DAILY PRN PRN Reason: Constipation Clonazepam (Klonopin) 0.5 mg PO DAILY [facility] [place] Last Admin: 06/14/17 09:15 Dose: 0.5 mg Duloxetine HCl (Cymbalta) 60 mg PO DAILY [facility] [place] Last Admin: 06/14/17 09:07 Dose: 60 mg Enoxaparin Sodium (Lovenox) 40 mg SC DAILY [facility] PRN Reason: Protocol Last Admin: 06/14/17 09:06 Dose: 40 mg Famotidine (Pepcid) 20 mg PO DAILY [facility] Last Admin: 06/14/17 12:41 Dose: 20 mg Ketorolac Tromethamine (Toradol) 15 mg IVP Q6 PRN PRN Reason: Pain, moderate (4-7) Stop: 06/17/17 22:07 Last Admin: 06/14/17 04:47 Dose: 15 mg Lactulose (Enulose) 20 gm PO DAILY [facility] [place] Last Admin: 06/14/17 16:24 Dose: 20 gm Magnesium Hydroxide (Milk Of Magnesia) 30 ml PO DAILY [facility] Montelukast Sodium (Singulair) 10 mg PO DAILY [facility] [place] Last Admin: 06/14/17 09:07 Dose: 10 mg Ondansetron HCl (Zofran Inj) 4 mg IVP Q6 PRN PRN Reason: Nausea/Vomiting Pantoprazole Sodium (Protonix Ec Tab) 40 mg PO DAILY [facility] [place] Last Admin: 06/14/17 09:07 Dose: 40 mg Polyethylene Glycol (Miralax) 17 gm PO HS [facility] Last Admin: 06/14/17 21:41 Dose: Not Given Pregabalin (Lyrica) 50 mg PO BID [facility] [place] Last Admin: 06/14/17 16:27 Dose: 50 mg Fluticasone/Salmeterol (Advair Diskus 250/50) 1 puff IH Q12 [facility] [place] Last Admin: 06/14/17 21:40 Dose: 1 puff Senna/Docusate Sodium (Senokot S 50 Mg-8.6 Mg) 2 tab PO HS [facility] Last Admin: 06/14/17 21:41 Dose: Not Given Tramadol HCl (Ultram) 50 mg PO TID PRN PRN Reason: Pain, moderate (4-7) - Labs Labs: 06/14/17 04:20 06/14/17 04:20 PT 13.1 Seconds (9.8-13.1) 06/13/17 17:35 INR 1.2 (0.9-1.2) 06/13/17 17:35 APTT 31.3 Seconds (25.6-37.1) 06/13/17 17:35
[2017-06-15] MEDS: Fluticasone-Salmeterol 250-50mcg Diskus IH SCH ×2 (09:05→20:53)
[2017-06-15] MEDS: Enoxaparin 40 mg Syringe SC SCH (09:08)
[2017-06-15] MEDS: Pantoprazole 40 mg EC Tab PO SCH (09:12)
--- NOTE | 2017-06-15 09:49 | CP.PCM.DIS ---
Addendum entered and electronically signed by Kerri Curry MD 06/16/17 09:38: Pt seen at bedside this morning, reports feeling much better. echo results reviewed with pt. pt reports she has all necessary medications, does not need refilled pt is being discharge home today with bowel regime as her constipation was extensive Pt was not discharge home on 06/15/17 due echo exam being completed late Echo results- Normal Left ventricular function, normal EF transmitter flow pattern is grade 1, trace pericardial effusion giving echo finding will recommend, some outpatient cardiology follow up . Pt is being discharged home today 06/16/17 Addendum entered and electronically signed by Teri Olea MD 06/15/17 18:22: Pt completed echo today. Will be discharged tomorrow. Original Note: Provider - Provider Date of Admission: 06/14/17 15:49 Attending physician: Wendy Frey MD Time Spent in preparation of Discharge (in minutes): 55 Diagnosis - Discharge Diagnosis (1) GERD (gastroesophageal reflux disease) Status: Acute (2) Constipation Status: Acute (3) Pericardial effusion Status: Acute (4) Pleural effusion Status: Acute Hospital Course - Lab Results Lab Results: Micro Results 06/13/17 20:30 Urine,Clean Catch Urine Culture - Final Staphylococcus Sp Coag Neg 06/13/17 20:00 Blood-Venous Blood Culture - Preliminary NO GROWTH AFTER 24 HOURS 06/13/17 20:00 Blood-Venous Blood Culture - Preliminary NO GROWTH AFTER 24 HOURS Most Recent Lab Values WBC 5.0 K/uL (4.8-10.8) 06/14/17 04:20 RBC 4.72 Mil/uL (3.80-5.20) 06/14/17 04:20 Hgb 11.8 g/dL (12.0-16.0) L 06/14/17 04:20 Hct 36.7 % (34.0-47.0) 06/14/17 04:20 MCV 77.8 fl (81.0-99.0) L 06/14/17 04:20 MCH 25.0 pg (27.0-31.0) L 06/14/17 04:20 MCHC 32.1 g/dL (33.0-37.0) L 06/14/17 04:20 RDW 15.4 % (11.5-14.5) H 06/14/17 04:20 Plt Count 324 K/uL (130-400) 06/14/17 04:20 MPV 8.2 fl (7.2-11.7) 06/14/17 04:20 Neut % (Auto) 71.2 % (50.0-75.0) 06/14/17 04:20 Lymph % (Auto) 16.3 % (20.0-40.0) L 06/14/17 04:20 [place] % (Auto) 7.2 % (0.0-10.0) 06/14/17 04:20 Eos % (Auto) 4.9 % (0.0-4.0) H 06/14/17 04:20 Baso % (Auto) 0.4 % (0.0-2.0) 06/14/17 04:20 Neut # (Auto) 3.6 K/uL (1.8-7.0) 06/14/17 04:20 Lymph # (Auto) 0.8 K/uL (1.0-4.3) L 06/14/17 04:20 [place] # (Auto) 0.4 K/uL (0.0-0.8) 06/14/17 04:20 Eos # (Auto) 0.2 K/uL (0.0-0.7) 06/14/17 04:20 Baso # (Auto) 0.0 K/uL (0.0-0.2) 06/14/17 04:20 Neutrophils % (Manual) 80 % (42-75) H 06/13/17 17:35 Lymphocytes % (Manual) 10 % (20-50) L 06/13/17 17:35 Monocytes % (Manual) 7 % (0-10) 06/13/17 17:35 Eosinophils % (Manual) 3 % (0-7) 06/13/17 17:35 Platelet Estimate Normal (NORMAL) 06/13/17 17:35 Polychromasia Slight 06/13/17 17:35 Hypochromasia (manual) Slight 06/13/17 17:35 Poikilocytosis (manual Slight 06/13/17 17:35 Anisocytosis (manual) Slight 06/13/17 17:35 Microcytosis (manual) Slight 06/13/17 17:35 Ovalocytes Slight 06/13/17 17:35 ESR 28 mm/hr (0-30) 06/15/17 05:00 PT 13.1 Seconds (9.8-13.1) 06/13/17 17:35 INR 1.2 (0.9-1.2) 06/13/17 17:35 APTT 31.3 Seconds (25.6-37.1) 06/13/17 17:35 pO2 40 mm/Hg (30-55) 06/13/17 19:33 VBG pH 7.40 (7.32-7.43) 06/13/17 19:33 VBG pCO2 39 mmHg (40-60) L 06/13/17 19:33 VBG HCO3 24.1 mmol/L 06/13/17 19:33 VBG Total CO2 25.4 mmol/L (22-28) 06/13/17 19:33 VBG O2 Sat (Calc) 82.2 % (40-65) H 06/13/17 19:33 VBG Base Excess -0.5 mmol/L (0.0-2.0) L 06/13/17 19:33 VBG Potassium 3.8 mmol/L (3.6-5.2) 06/13/17 19:33 Sodium 137.0 mmol/L (132-148) 06/13/17 19:33 Chloride 105.0 mmol/L (98-107) 06/13/17 19:33 Glucose 108 mg/dL (65-105) H 06/13/17 19:33 Lactate 1.4 mmol/L (0.7-2.1) 06/13/17 19:33 FiO2 21.0 % 06/13/17 19:33 Sodium 142 mmol/l (132-148) 06/14/17 04:20 Potassium 4.0 MMOL/L (3.6-5.0) 06/14/17 04:20 Chloride 105 mmol/L (98-107) 06/14/17 04:20 Carbon Dioxide 26 mmol/L (22-30) 06/14/17 04:20 Anion Gap 15 (10-20) 06/14/17 04:20 BUN 16 mg/dl (7-17) 06/14/17 04:20 Creatinine 1.2 mg/dl (0.7-1.2) 06/14/17 04:20 Est GFR ( Amer) 57 06/14/17 04:20 Est GFR (Non-Af Amer) 47 06/14/17 04:20 Random Glucose 84 mg/dL (65-105) 06/14/17 04:20 Calcium 8.9 mg/dL (8.4-10.2) 06/14/17 04:20 Total Bilirubin 0.5 mg/dl (0.2-1.3) 06/13/17 17:35 AST 16 U/L (14-36) 06/13/17 17:35 ALT 29 U/L (9-52) 06/13/17 17:35 Alkaline Phosphatase 85 U/L (38-126) 06/13/17 17:35 Troponin I < 0.0120 ng/mL (0.00-0.120) 06/13/17 21:00 Total Protein 6.9 G/DL (6.3-8.2) 06/13/17 17:35 Albumin 3.4 g/dL (3.5-5.0) L 06/13/17 17:35 Globulin 3.5 gm/dL (2.2-3.9) 06/13/17 17:35 Albumin/Globulin Ratio 1.0 (1.0-2.1) 06/13/17 17:35 Lipase 24 U/L (23-300) 06/13/17 17:35 TSH 3rd Generation 0.63 mIU/ML (0.46-4.68) 06/13/17 20:10 Venous Blood Potassium 3.8 mmol/L (3.6-5.2) 06/13/17 19:33 Urine Color Shyla (YELLOW) 06/13/17 18:54 Urine Clarity Cloudy (Clear) 06/13/17 18:54 Urine pH 5.0 (5.0-8.0) 06/13/17 18:54 Ur Specific [place] 1.031 (1.003-1.030) H 06/13/17 18:54 Urine Protein 30 mg/dL (NEGATIVE) 06/13/17 18:54 Urine Glucose (UA) Neg mg/dL (Normal) 06/13/17 18:54 Urine Ketones Negative mg/dL (NEGATIVE) 06/13/17 18:54 Urine Blood Negative (NEGATIVE) 06/13/17 18:54 Urine Nitrate Negative (NEGATIVE) 06/13/17 18:54 Urine Bilirubin Negative (NEGATIVE) 06/13/17 18:54 Urine Urobilinogen 2.0 mg/dL (0.2-1.0) H 06/13/17 18:54 Ur Leukocyte Esterase Mod [place]/uL (Negative) 06/13/17 18:54 Urine RBC (Auto) 3 /hpf (0-3) 06/13/17 18:54 Urine Microscopic WBC 31 /hpf (0-5) H 06/13/17 18:54 Ur Squamous Epith Cells 8 /hpf (0-5) H 06/13/17 18:54 Granular Casts (Auto) 2 /lpf (0-1) 06/13/17 18:54 - Hospital Course Hospital Course: Hospital Couse: 51 year old female with hx of asthma, anxiety, chronic back pain, schitzoaffective disorder, GERD presented to [facility] with acute abdominal pain and found on CT to have right sided moderate pleural effusion, small pericardial effusion, large stool burden. Pt had CT Angio completed which ruled out PE and pericardial effusion was shown to have resolved. Constipation was managed with bowel regimen and pt had multiple bowel movements which relieved her abdominal pain. Pt had echo completed which will be followed up outpatient. Pt was stable and asymptomatic on discharge. Discharge Medications: -Norvasc was reduced from 5mg po daily to 2.5mg po daily -Start Torpol XL 25md po daily -Start Simethicone 17.5mg prn for constipation Continue with current home medication: Benztropine Mesylate (Cogentin) 0.5 mg PO DAILY JOVANA Clonazepam (Klonopin) 0.5 mg PO DAILY JOVANA Duloxetine HCl (Cymbalta) 60 mg PO DAILY JOVANA Montelukast Sodium (Singulair) 10 mg PO DAILY JOVANA Pregabalin (Lyrica) 50 mg PO BID JOVANA Fluticasone/Salmeterol (Advair Diskus 250/50) 1 puff IH Q12 JOVANA Senna/Docusate Sodium (Senokot S 50 Mg-8.6 Mg) 2 tab PO HS JOVANA Tramadol HCl (Ultram) 50 mg PO TID PRN Discharge Instructions: Medication adjustments explained to patient. F/u with PMD 07/03 Discharge Exam - Head Exam Head Exam: NORMAL INSPECTION - Eye Exam Eye Exam: Normal appearance - ENT Exam ENT Exam: Mucous Membranes Moist - Respiratory Exam Respiratory Exam: Clear to PA & Lateral, NORMAL BREATHING PATTERN. absent: Rales, Wheezes - Cardiovascular Exam Cardiovascular Exam: REGULAR RHYTHM, +S1, +S2. absent: Systolic Murmur - GI/Abdominal Exam GI & Abdominal Exam: Normal Bowel Sounds, Soft. absent: Distended, Tenderness - Extremities Exam Extremities exam: normal inspection - Back Exam Back exam: absent: CVA tenderness (L), CVA tenderness (R) - Neurological Exam Neurological exam: Alert, Oriented x3 - Psychiatric Exam Psychiatric exam: Normal Affect - Skin Skin Exam: Normal Color Discharge Plan - Follow Up Plan Condition: FAIR Disposition: HOME/ ROUTINE
[2017-06-15 13:33] VITALS: RESP 18
[2017-06-15] MEDS: Metoprolol Succinate 25 mg XL Tab PO SCH (17:28)
--- NOTE | 2017-06-15 19:06 | CARD ---
APPROVED REPORT EXAM: Two-dimensional and M-mode echocardiogram with Doppler and color Doppler. Other Information Quality : GoodRhythm : NSR INDICATION Pericardial Effusion 2D DIMENSIONS IVSd1.22 (0.7-1.1cm)LVDd3.96 (3.9-5.9cm) LVOT Diameter2.18 (1.8-2.4cm)PWd1.42 (0.7-1.1cm) IVSs1.50 (0.8-1.2cm)LVDs2.93 (2.5-4.0cm) FS (%) 26.1 %PWs1.25 (0.8-1.2cm) LVEF (%)55.0 (>50%) M-Mode DIMENSIONS Left Atrium (MM)3.86 (2.5-4.0cm)IVSd1.38 (0.7-1.1cm) Aortic Root2.98 (2.2-3.7cm)LVDd3.86 (4.0-5.6cm) Aortic Cusp Exc.1.79 (1.5-2.0cm)PWd1.32 (0.7-1.1cm) IVSs1.82 cmFS (%) 34 % LVDs2.56 (2.0-3.8cm)PWs1.52 cm Mitral Valve MV E Rfygjwlz77.2cm/sMV DECEL ASSQ523hgIG A Wqyzrpmt28.6cm/s MV UOP23fiJ/A ratio0.8MVA (PHT)5.09cm2 TDI Lateral E' Peak V5.87cm/sMedial E' Peak V5.95cm/sE/Lateral E'8.0 E/Medial E'7.9 Pulmonary Valve PV Peak Raqnilgq974.1cm/s LEFT VENTRICLE The left ventricle is normal size. There is mild concentric left ventricular hypertrophy. The left ventricular function is normal. The left ventricular ejection fraction is within the normal range. There is normal LV segmental wall motion. Transmitral Doppler flow pattern is Grade I-abnormal relaxation pattern. RIGHT VENTRICLE The right ventricle is normal size. There is normal right ventricular wall thickness. The right ventricular systolic function is normal. ATRIA The left atrium size is normal. The right atrium size is normal. AORTIC VALVE The aortic valve is not well visualized. No aortic regurgitation is present. There is no aortic valvular stenosis. MITRAL VALVE The mitral valve is mildly thickened. There is no mitral valve stenosis. There is no mitral valve regurgitation noted. TRICUSPID VALVE The tricuspid valve is normal in structure. There is no tricuspid valve regurgitation noted. PULMONIC VALVE The pulmonary valve is normal in structure. There is no pulmonic valvular regurgitation. GREAT VESSELS The aortic root is normal in size. The IVC was not visualized. PERICARDIAL EFFUSION There is a trace circumferential pericardial effusion. <Conclusion> The left ventricle is normal size. There is mild concentric left ventricular hypertrophy. The left ventricular function is normal. The left ventricular ejection fraction is within the normal range. There is normal LV segmental wall motion. Transmitral Doppler flow pattern is Grade I-abnormal relaxation pattern. There is a trace circumferential pericardial effusion.
[2017-06-15] MEDS: Docusate-Senna 50 mg-8.6 mg Tab PO SCH (21:19)
[2017-06-16 08:18] VITALS: BP 129/90; TEMP 98.4; O2SAT 93
[2017-06-16] MEDS: Fluticasone-Salmeterol 250-50mcg Diskus IH SCH (08:41)
[2017-06-16] MEDS: Pantoprazole 40 mg EC Tab PO SCH (08:42)
[2017-06-16] MEDS: Enoxaparin 40 mg Syringe SC SCH (08:42)
[2017-06-16] MEDS: Metoprolol Succinate 25 mg XL Tab PO SCH (08:43)
[2017-06-16] MEDS ORDERED: Metoprolol Succinate 25 mg XL Tab PO SCH (09:00)
[2017-06-16 11:17] VITALS: PULSE 98
== END 2017-06-16 14:10 | disposition home or self-care (01) | DRG 690 ==
LOC: H.ER 16:18 → H.ERHOLD 20:46 → H.TEL 22:36 → OBSVTOIN 06-14 15:49
PROVIDERS: ADMIT Family Medicine Geriatric Medicine; ATTEND Family Medicine Geriatric Medicine
DX: N39.0 Urinary tract infection, site not specified (principal); I31.3 Pericardial effusion (noninflammatory); J90 Pleural effusion, not elsewhere classified; B95.7 Other staphylococcus as the cause of diseases classified elsewhere; I10 Essential (primary) hypertension; F25.9 Schizoaffective disorder, unspecified; K21.9 Gastro-esophageal reflux disease without esophagitis; J45.30 Mild persistent asthma, uncomplicated; E66.9 Obesity, unspecified; Z68.30 Body mass index [BMI] 30.0-30.9, adult; K59.00 Constipation, unspecified; G89.29 Other chronic pain; F41.9 Anxiety disorder, unspecified; Z88.0 Allergy status to penicillin

== ENCOUNTER 2017-09-22 11:22 | Observation (INO) | payer MEDICARE, SELFPAY ==
[2017-09-22 11:23] VITALS: BMI 27.6
[2017-09-22] MEDS ORDERED: Sodium Chloride 0.9% 1,000 ML IV STA (12:24)
--- NOTE | 2017-09-22 12:24 | ED PDOC ---
HPI: General Adult Time Seen by Provider: 09/22/17 12:11 Chief Complaint (Nursing): Back Pain Chief Complaint (Provider): tongue numbness, neck pain, back pain History Per: Patient Additional Complaint(s): 51 year old female presents to ED with neck pain and numbness to tongue for the past 3 days. Patient has also had mild numbness to left arm for 3 days as well. Patient states her lower back has been bothering her as well. No recent trauma. No fever, chills, chest pain, shortness of breath or dyspnea on exertion. Patient states she is having difficulty eating secondary to numbness of tongue. PMD: Dr. Dayana Staples Past Medical History Reviewed: Historical Data, Nursing Documentation, Vital Signs Vital Signs: Last Vital Signs Temp 98.3 F 09/22/17 11:26 Pulse 94 H 09/22/17 11:26 Resp 20 09/22/17 11:26 BP 128/93 H 09/22/17 11:26 Pulse Ox 96 09/22/17 16:33 - Medical History PMH: Arthritis, Asthma, CVA, Depression, HTN, Personality Disorder, Schizophrenia (on monthly invega), Sleep Apnea - Surgical History Surgical History: Back Surgery, Cholecystectomy (2 years ago) - Family History Family History: States: No Known Family Hx - Living Arrangements Living Arrangements: With Family - Social History Current smoker - smoking cessation education provided: No Alcohol: None Drugs: Denies - Home Medications Home Medications: Ambulatory Orders Medication Instructions Recorded Acetaminophen [Tylenol 325mg tab] 500 mg PO Q6 PRN 06/13/17 Benztropine [Cogentin] 0.5 mg PO DAILY 06/13/17 Clonazepam [Klonopin] 0.5 mg PO DAILY 06/13/17 Duloxetine HCl 60 mg PO DAILY 06/13/17 Esomeprazole Magnesium [Nexium] 40 mg PO DAILY 06/13/17 Meloxicam [Mobic] 15 mg PO DAILY 06/13/17 Montelukast Sodium [Singulair] 10 mg PO DAILY 06/13/17 Pregabalin [Lyrica] 50 mg PO BID 06/13/17 Salmeterol Xinafoate/Fluticaso 2 puff IH DAILY 06/13/17 [Advair Hfa 115/21] Tramadol HCl [Ultram] 50 mg PO TID PRN 06/13/17 Docusate Sodium/Sennosides A 2 tab PO PRN PRN #14 tab 06/15/17 [Senokot S 50 MG-8.6 MG] Metoprolol Succinate XL [Toprol XL] 25 mg PO BRK 15 Days #30 tab 06/15/17 amLODIPine [Norvasc] 2.5 mg PO DAILY 30 Days #30 tab 06/15/17 - Allergies Allergies/Adverse Reactions: Allergies Allergy/AdvReac Type Severity Reaction Status Date / Time Penicillins Allergy Unknown RASH Verified 06/13/17 16:32 Review of Systems ROS Statement: Except As Marked, All Systems Reviewed And Found Negative Constitutional: Negative for: Fever, Chills, Weakness ENT: Positive for: Other (numbness of tongue for 3 days) Cardiovascular: Negative for: Chest Pain Respiratory: Negative for: Cough Gastrointestinal: Negative for: Nausea, Vomiting Genitourinary Female: Negative for: Dysuria Musculoskeletal: Positive for: Arm Pain (left arm numbness for 3 days), Back Pain Neurological: Negative for: Headache, Dizziness Physical Exam - Reviewed Nursing Documentation Reviewed: Yes Vital Signs Reviewed: Yes - Physical Exam Appears: Positive for: Well, Non-toxic, No Acute Distress Head Exam: Positive for: ATRAUMATIC, NORMAL INSPECTION Skin: Positive for: Normal Color. Negative for: Rash Eye Exam: Positive for: Normal appearance ENT: Positive for: Normal ENT Inspection Neck: Positive for: Pain On Movement Of Neck (tenderness diffusely to posterior cervical spine) Cardiovascular/Chest: Positive for: Regular Rate, Rhythm Respiratory: Positive for: Normal Breath Sounds. Negative for: Wheezing, Respiratory Distress Gastrointestinal/Abdominal: Positive for: Soft. Negative for: Tenderness, Distended, Guarding, Rebound Back: Negative for: L CVA Tenderness, R CVA Tenderness Extremity: Positive for: Normal ROM Neurologic/Psych: Positive for: Alert, scallop shucker II-XII (grossly intact), Oriented. Negative for: Motor/Sensory Deficits, Aphasia, Facial Droop - Laboratory Results Result Diagrams: 09/22/17 12:40 09/22/17 12:40 - ECG O2 Sat by Pulse Oximetry: 96 Pulse Ox Interpretation: Normal - Other Rad CXR X-Ray: Interpreted by Me, Viewed By Me X-Ray Interpretation: see below CT head X-Ray: Read By Radiologist X-Ray Interpretation: no acute finding CT cervical spine X-Ray: Read By Radiologist X-Ray Interpretation: degenerative changes, no acute finding LS spine x-ray X-Ray: Interpreted by Me, Viewed By Me X-Ray Interpretation: see below Medical Decision Making Medical Decision Makin51 year old with neck pain and tongue numbness Case was d/w Dr Partida, CT head and neck ordered but no Code Stroke called as symptoms are ongoing for 3 days and patient presents with no acute neuro deficits. Plan: CT head and neck EKG CBC CMP Trop LS Spine x-ray CXR IVF IV toradol CXR: IMPRESSION: Indistinctness of the left hemidiaphragm may be due to overlying soft tissue versus atelectasis, infiltrate and/or effusion. LS Spine x-ray: BONES: Partially imaged spinal fixation rods. Normal alignment. No listhesis. No fracture. DISC SPACES: Multilevel disc space narrowing. OTHER FINDINGS: Right upper quadrant surgical clips. IMPRESSION: No acute fracture. Multilevel degenerative changes. PMD is Dr. Staples, case was d/w family practice resident, Dr. Olea who will admit patient. Case was also discussed with Dr. Tran for neuro consult. He states to order MRI brain with and without contrast. Patient admitted to obs- tele. Disposition - Clinical Impression Clinical Impression: Paresthesia - Patient ED Disposition Is Patient to be Admitted: Yes - Disposition Disposition Time: 16:26 Condition: FAIR - Pt Status Changed To: Hospital Disposition Of: Observation Results - Lab Results Lab Results: 09/22/17 09/22/17 12:40 12:40 WBC 6.9 RBC 5.45 H Hgb 13.9 D Hct 42.7 MCV 78.2 L MCH 25.4 L MCHC 32.5 L RDW 14.8 H Plt Count 349 MPV 8.0 Neut % (Auto) 60.9 Lymph % (Auto) 31.4 [place] % (Auto) 7.0 Eos % (Auto) 0.1 Baso % (Auto) 0.6 Neut # (Auto) 4.2 Lymph # (Auto) 2.2 [place] # (Auto) 0.5 Eos # (Auto) 0.0 Baso # (Auto) 0.0 Sodium 143 Potassium 4.1 Chloride 104 Carbon Dioxide 27 Anion Gap 16 BUN 11 Creatinine 0.8 Est GFR ( Amer) > 60 Est GFR (Non-Af Amer) > 60 Random Glucose 89 Calcium 9.8 Total Bilirubin 0.6 AST 28 ALT 23 Alkaline Phosphatase 79 Troponin I < 0.0120 Total Protein 7.8 Albumin 4.3 Globulin 3.5 Albumin/Globulin Ratio 1.3
[2017-09-22 12:59] LABS: BASO % 0.6 % (0.0-2.0); EOS % 0.1 % (0.0-4.0); HEMOGLOBIN 13.9 g/dL (12.0-16.0); LYMPH # 2.2 K/uL (1.0-4.3); LYMPH % 31.4 % (20.0-40.0); MEAN CELL VOLUME 78.2 fl (81.0-99.0); MEAN CORPUSCULAR HEMOGLOBIN 25.4 pg (27.0-31.0); MEAN CORPUSCULAR HGB CONC 32.5 g/dL (33.0-37.0); MONO # 0.5 K/uL (0.0-0.8); NEUT # 4.2 K/uL (1.8-7.0); NEUT % 60.9 % (50.0-75.0); NRBC % 0.1 % (0.0-0.0); RBC 5.45 Mil/uL (3.80-5.20); RED CELL DISTRIBUTION WIDTH 14.8 % (11.5-14.5); WHITE BLOOD COUNT 6.9 K/uL (4.8-10.8)
[2017-09-22 13:12] LABS: ALB/GLOB RATIO 1.3 (1.0-2.1); ALBUMIN 4.3 g/dL (3.5-5.0); ALT/SGPT 23 U/L (9-52); AST/SGOT 28 U/L (14-36); BLOOD UREA NITROGEN 11 mg/dl (7-17); CALCIUM 9.8 mg/dL (8.4-10.2); GFR AFRICAN-AMERICAN > 60; GFR NON-AFRICAN AMERICAN > 60
--- NOTE | 2017-09-22 13:44 | CT ---
PROCEDURE: CT HEAD WITHOUT CONTRAST. HISTORY: tongue numbness x 3 days COMPARISON: MRI brain dated 07/17/2013. TECHNIQUE: Axial computed tomography images were obtained through the head/brain without intravenous contrast. Radiation dose: Total exam DLP = 809.9 mGy-cm. This CT exam was performed using one or more of the following dose reduction techniques: Automated exposure control, adjustment of the mA and/or kV according to patient size, and/or use of iterative reconstruction technique. FINDINGS: HEMORRHAGE: No intracranial hemorrhage. BRAIN: No mass effect or edema. No atrophy or chronic microvascular ischemic changes. VENTRICLES: Unremarkable. No hydrocephalus. CALVARIUM: Unremarkable. PARANASAL SINUSES: Unremarkable as visualized. No significant inflammatory changes. MASTOID AIR CELLS: Unremarkable as visualized. No inflammatory changes. OTHER FINDINGS: None. IMPRESSION: No acute intracranial pathology.
--- NOTE | 2017-09-22 13:48 | CT ---
PROCEDURE: CT Cervical Spine without contrast HISTORY: neck pain, tongue numbness COMPARISON: Correlation with CT neck dated 10/16/2014. TECHNIQUE: Axial computed tomography images were obtained of the cervical spine without the use of intravenous contrast. Coronal and sagittal reformatted images were created and reviewed. Radiation dose: Total exam DLP = 642.8 mGy-cm. This CT exam was performed using one or more of the following dose reduction techniques: Automated exposure control, adjustment of the mA and/or kV according to patient size, and/or use of iterative reconstruction technique. FINDINGS: VERTEBRAE: No fracture. Normal alignment. No destructive bony lesion. DISCS/SPINAL CANAL/NEURAL FORAMINA: Multilevel disc space narrowing. No significant central canal stenosis. PARASPINAL SOFT TISSUES: Unremarkable. OTHER FINDINGS: None. IMPRESSION: No acute fracture. Multilevel degenerative changes.
--- NOTE | 2017-09-22 15:10 | RAD ---
PROCEDURE: CHEST RADIOGRAPH, 1 VIEW HISTORY: clearance COMPARISON: Chest radiograph dated 06/13/2017. FINDINGS: LUNGS: Indistinctness of the left hemidiaphragm may be due to overlying soft tissue. PLEURA: No pneumothorax or pleural fluid seen. CARDIOVASCULAR: Cardiomediastinal silhouette stably enlarged. OSSEOUS STRUCTURES: Spinal fixation rods redemonstrated. Unchanged. VISUALIZED UPPER ABDOMEN: Normal. OTHER FINDINGS: None. IMPRESSION: Indistinctness of the left hemidiaphragm may be due to overlying soft tissue versus atelectasis, infiltrate and/or effusion.
--- NOTE | 2017-09-22 15:11 | RAD ---
PROCEDURE: Radiographs of the Lumbar Spine. HISTORY: low back pain COMPARISON: No prior. FINDINGS: BONES: Partially imaged spinal fixation rods. Normal alignment. No listhesis. No fracture. DISC SPACES: Multilevel disc space narrowing. OTHER FINDINGS: Right upper quadrant surgical clips. IMPRESSION: No acute fracture. Multilevel degenerative changes.
[2017-09-22 16:57] LABS: SQUAMOUS EPITHIAL 1 /hpf (0-5); URINE BILIRUBIN NEGATIVE (NEGATIVE); URINE BLOOD NEGATIVE (NEGATIVE); URINE CLARITY CLEAR (Clear); URINE COLOR STRAW (YELLOW); URINE GLUCOSE (UA) NEG (Normal); URINE LEUKOCYTE ESTERASE SMALL Leu/uL (Negative); URINE PROTEIN NEGATIVE (NEGATIVE); URINE UROBILINOGEN 0.2-1.0 mg/dL (0.2-1.0)
[2017-09-22] MEDS ORDERED: TYLENOL PO PRN (17:27)
[2017-09-22 18:12] LABS: HDL CHOLESTEROL 35 MG/DL (30-70)
[2017-09-22 18:23] LABS: LDL CHOLESTEROL 92 mg/dL (0-129)
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
--- NOTE | 2017-09-22 20:17 | CP.PCM.CON ---
History of Present Illness - History of Present Illness History of Present Illness: Neurology Consultation Note: Mrs. Ortiz is a 51-year-old woman with a past medical history of schizophrenia who complains of tongue numbness and intermittent subjective left side numbness, with occasional objective left side weakness. CT scan of the brain did not show any acute findings. She states that she has been having these symptoms for several weeks. Review of Systems - Review of Systems All systems: reviewed and no additional remarkable complaints except Past Patient History - Infectious Disease Hx of Infectious Diseases: None - Past Medical History & Family History Past Medical History?: Yes - Past Social History Alcohol: None Drugs: Denies - CARDIAC Hx Hypertension: Yes - PULMONARY Hx Asthma: Yes Hx Sleep Apnea: Yes - NEUROLOGICAL Hx Neurological Disorder: Yes - HEENT Hx HEENT Problems: No - RENAL Hx Chronic Kidney Disease: No - ENDOCRINE/METABOLIC Hx Endocrine Disorders: No - HEMATOLOGICAL/ONCOLOGICAL Hx Human Immunodeficiency Virus (HIV): No - INTEGUMENTARY Hx Dermatological Problems: No - MUSCULOSKELETAL/RHEUMATOLOGICAL Hx Arthritis: Yes - GASTROINTESTINAL Hx Gastrointestinal Disorders: No - GENITOURINARY/GYNECOLOGICAL Hx Sexually Transmitted Disorders: No - PSYCHIATRIC Hx Depression: Yes Hx Schizophrenia: Yes (on monthly invega) - SURGICAL HISTORY Hx Cholecystectomy: Yes (2 years ago) - ANESTHESIA Hx Anesthesia: Yes Hx Anesthesia Reactions: No Meds Allergies/Adverse Reactions: Allergies Allergy/AdvReac Type Severity Reaction Status Date / Time Penicillins Allergy Unknown RASH Verified 06/13/17 16:32 - Medications Medications: Current Medications Acetaminophen (Tylenol 325mg/10.15ml Ud) 500 mg PO Q6 PRN PRN Reason: Pain, severe (8-10) Amlodipine Besylate (Norvasc) 2.5 mg PO DAILY [facility] Benztropine Mesylate (Cogentin) 0.5 mg PO DAILY [facility] Clonazepam (Klonopin) 0.5 mg PO DAILY [facility] Duloxetine HCl (Cymbalta) 60 mg PO DAILY [facility] Enoxaparin Sodium (Lovenox) 40 mg SC DAILY [facility] PRN Reason: Protocol Metoprolol Succinate (Toprol Xl) 25 mg PO BRK [facility] Montelukast Sodium (Singulair) 10 mg PO HS [facility] Naproxen (Naproxen) 500 mg PO BID [facility] Pantoprazole Sodium (Protonix Ec Tab) 40 mg PO DAILY [facility] Pregabalin (Lyrica) 50 mg PO BID [facility] Senna/Docusate Sodium (Senokot S 50 Mg-8.6 Mg) 2 tab PO DAILY [facility] Tramadol HCl (Ultram) 50 mg PO TID PRN PRN Reason: Pain, moderate (4-7) Physical Exam - Neurological Exam Neurological exam: Abnormal Gait, Alert, CN II-XII Intact, Oriented x3, Reflexes Normal Additional comments: AAOX3, speech is fluent, slight left side weakness, no pronator drift, hand boiler maker is symmetrical, left lower extremity is slightly weaker than the right, but exam is not consistent. Plantar responses are downgoing bilaterally. - Psychiatric Exam Psychiatric exam: Depressed, Flat Affect Results - Vital Signs Recent Vital Signs: Last Vital Signs Temp 98.7 F 09/22/17 18:44 Pulse 74 09/22/17 18:44 Resp 16 09/22/17 18:44 BP 139/97 H 09/22/17 18:44 Pulse Ox 96 09/22/17 18:59 - Labs Result Diagrams: 09/22/17 12:40 09/22/17 12:40 Labs: Laboratory Results - last 24 hr 09/22/17 09/22/17 09/22/17 12:40 12:40 16:25 WBC 6.9 RBC 5.45 H Hgb 13.9 D Hct 42.7 MCV 78.2 L MCH 25.4 L MCHC 32.5 L RDW 14.8 H Plt Count 349 MPV 8.0 Neut % (Auto) 60.9 Lymph % (Auto) 31.4 [place] % (Auto) 7.0 Eos % (Auto) 0.1 Baso % (Auto) 0.6 Neut # (Auto) 4.2 Lymph # (Auto) 2.2 [place] # (Auto) 0.5 Eos # (Auto) 0.0 Baso # (Auto) 0.0 Sodium 143 Potassium 4.1 Chloride 104 Carbon Dioxide 27 Anion Gap 16 BUN 11 Creatinine 0.8 Est GFR ( Amer) > 60 Est GFR (Non-Af Amer) > 60 Random Glucose 89 Calcium 9.8 Total Bilirubin 0.6 AST 28 ALT 23 Alkaline Phosphatase 79 Troponin I < 0.0120 Total Protein 7.8 Albumin 4.3 Globulin 3.5 Albumin/Globulin Ratio 1.3 Triglycerides Cholesterol LDL Cholesterol Direct HDL Cholesterol Urine Color Urine Clarity Urine pH Ur Specific [place] Urine Protein Urine Glucose (UA) Urine Ketones Urine Blood Urine Nitrate Urine Bilirubin Urine Urobilinogen Ur Leukocyte Esterase Urine RBC (Auto) Urine Microscopic WBC Ur Squamous Epith Cells Alcohol, Quantitative < 10 09/22/17 09/22/17 16:35 17:35 WBC RBC Hgb Hct MCV MCH MCHC RDW Plt Count MPV Neut % (Auto) Lymph % (Auto) [place] % (Auto) Eos % (Auto) Baso % (Auto) Neut # (Auto) Lymph # (Auto) [place] # (Auto) Eos # (Auto) Baso # (Auto) Sodium Potassium Chloride Carbon Dioxide Anion Gap BUN Creatinine Est GFR ( Amer) Est GFR (Non-Af Amer) Random Glucose Calcium Total Bilirubin AST ALT Alkaline Phosphatase Troponin I Total Protein Albumin Globulin Albumin/Globulin Ratio Triglycerides 85 D Cholesterol 168 LDL Cholesterol Direct 92 HDL Cholesterol 35 Urine Color Straw Urine Clarity Clear Urine pH 7.0 Ur Specific [place] 1.009 Urine Protein Negative Urine Glucose (UA) Neg Urine Ketones 20 Urine Blood Negative Urine Nitrate Negative Urine Bilirubin Negative Urine Urobilinogen 0.2-1.0 Ur Leukocyte Esterase Small Urine RBC (Auto) 1 Urine Microscopic WBC 20 H Ur Squamous Epith Cells 1 Alcohol, Quantitative Assessment & Plan (1) Left-sided weakness Assessment and Plan: Unlikely to be centrally mediated and may be due to psychiatric illness; however , it is difficult to determine if she has true weakness since she is not always compliant with the exam. An MRI of the brain is recommended to rule out any organic disease. Otherwise, the patient did exhibit the desire for self harm and should be cared for psychiatrically. Continue aspirin 81 mg daily and check lipid panel to evaluate for HLD and treat accordingly. Check HbA1c, B12, folate, and vitamin D levels. Thank you. Status: Acute (2) Paresthesia Status: Acute
[2017-09-22] MEDS: Docusate-Senna 50 mg-8.6 mg Tab PO SCH (21:46)
--- NOTE | 2017-09-23 08:20 | CP.PCM.PN ---
Subjective - Date & Time of Evaluation Date of Evaluation: 09/23/17 Time of Evaluation: 08:16 - Subjective Subjective: Ms. Ortiz was seen and examined at the bedside. She is alert, oriented in all spheres, soft spoken. She denies any headache, dizziness and harming herself. However, she admits of having the thoughts prior to hospitalization. She is able to ambulate to and from bed to bathroom with walker in steady gait. She further claims of numbness in her left side of the body with no weakness noted during assessment. She remains on 1:1 sitter for patient safety. There was no untoward events overnight. Objective - Vital Signs/Intake and Output Vital Signs (last 24 hours): Temp Pulse Resp BP Pulse Ox 98.3 F 85 17 145/89 98 09/23/17 05:00 09/23/17 05:00 09/23/17 05:00 09/23/17 05:00 09/23/17 05:00 - Medications Medications: Current Medications Acetaminophen (Tylenol 325mg/10.15ml Ud) 500 mg PO Q6 PRN PRN Reason: Pain, severe (8-10) Amlodipine Besylate (Norvasc) 2.5 mg PO DAILY [facility] Atorvastatin Calcium (Lipitor) 40 mg PO HS [facility] Benztropine Mesylate (Cogentin) 0.5 mg PO DAILY [facility] Clonazepam (Klonopin) 0.5 mg PO DAILY [facility] Last Admin: 09/22/17 21:47 Dose: 0.5 mg Duloxetine HCl (Cymbalta) 60 mg PO DAILY [facility] Enoxaparin Sodium (Lovenox) 40 mg SC DAILY [facility] PRN Reason: Protocol Metoprolol Succinate (Toprol Xl) 25 mg PO BRK [facility] Montelukast Sodium (Singulair) 10 mg PO HS [facility] Naproxen (Naproxen) 500 mg PO BID [facility] Pantoprazole Sodium (Protonix Ec Tab) 40 mg PO DAILY [facility] Pregabalin (Lyrica) 50 mg PO BID [facility] Senna/Docusate Sodium (Senokot S 50 Mg-8.6 Mg) 2 tab PO DAILY [facility] Last Admin: 09/22/17 21:46 Dose: 2 tab Tramadol HCl (Ultram) 50 mg PO TID PRN PRN Reason: Pain, moderate (4-7) - Labs Labs: 09/22/17 12:40 09/22/17 12:40 - Constitutional Appears: No Acute Distress - Head Exam Head Exam: NORMAL INSPECTION - Eye Exam Pupil Exam: PERRL - Neurological Exam Neurological Exam: Alert, Awake Neuro motor strength exam: Left Upper Extremity: 4, Right Upper Extremity: 4, Left Lower Extremity: 4, Right Lower Extremity: 4 Additional comments: alert, oriented, follows commands, sensation asymmetrical especially the left side. Assessment and Plan (1) Left-sided weakness Assessment & Plan: Case discussed with Dr. Tran, continue all current medical including psychiatry treatment. Pending MRI of the brain to evaluate any brain pathology of her weakness, hypercoagulability studies. Recommend lipitor 40 mg PO Q HS to keep LDL< 70, follow any psychiatry order. Status: Acute
[2017-09-23] MEDS: Enoxaparin 40 mg Syringe SC SCH (08:48)
[2017-09-23] MEDS: Naproxen 500 MG TAB PO SCH ×2 (08:49→18:08)
[2017-09-23] MEDS: Pantoprazole 40 mg EC Tab PO SCH (08:51)
[2017-09-23] MEDS: Metoprolol Succinate 25 mg XL Tab PO SCH (08:54)
[2017-09-23] MEDS: Docusate-Senna 50 mg-8.6 mg Tab PO SCH (08:56)
--- NOTE | 2017-09-23 09:41 | CP.PCM.CON ---
History of Present Illness - History of Present Illness History of Present Illness: Psychiatry consult note CC: "I was hearing voices." HPI: 51 yo female w/ h/o Schizoaffective D/O, Asthma, HTN, Chronic pain, presented to the ED w/ 3 days of numbness of the L upper extremity, lower extremity and anterior tongue. Patient reports that she had suicidal thoughts w/o plan or intent; but no longer has passive or suicidal ideation/plan/intent and wants to live for her kids. She reports that the dosage of her Invega Sustenna was increased last month and that sometimes towards the end of the month she has worsening hallucinations. She reports mild intermittent AH, but no command AH. We discussed starting Seroquel until she can get her next IM injection. She does not want acute inpatient psychiatric admission at this time and can contract for safety. She denies depression/anxiety/VH/paranoia/SI/ HI. PPHx: H/o past psychiatric admissions; current outpatient treatment w/ Dr. Minaya, next apt on 09/27/17. She currently takes Cymbalta 60 mg PO Daily, Klonopin 0.5 mg PO Daily and PRN; Invega Sustenna 234 mg IM monthly PMHx: Asthma (Mild persistent)- Monteleukast, Meloxicam, Advair, Ventolin Schizoaffective Disorder- Clonazepam, Invega IM, Duloxetine Chronic back pain- Tramadol 50mg prn Lumbar Radiculopathy- Lyrica Questionable history of CVA (undocumented in any clinic notes). Pt states in 2004 she had a stroke. ALL: PCN (Hives) Social: Lives alone, has generator mechanic that comes 2x a week. Denies smoking, drinking, drug use. MSE: A + O x 3, calm, cooperative, good eye contact, speech-soft; mood/affect- neutral; no current AH/VH/SI/HI/paranoia/delusions, fair I/J; good impulse control; thought process- linear/coherent Impression: 51 yo female w/ Schizoaffective disorder, does not want acute psychiatric admission and does not meet criteria for involuntary commitment. -Patient is psychiatrically stable to be discharged at this time -Start Seroquel 100 mg PO HS -Patient to follow-up with Dr. Minaya on 09/27/17 -No 1:1 needed -Continue Invega Sustenna, Cymbalta and Klonopin Past Patient History - Infectious Disease Hx of Infectious Diseases: None - Past Medical History & Family History Past Medical History?: Yes - Past Social History Alcohol: None Drugs: Denies - CARDIAC Hx Hypertension: Yes - PULMONARY Hx Asthma: Yes Hx Sleep Apnea: Yes - NEUROLOGICAL Hx Neurological Disorder: Yes - HEENT Hx HEENT Problems: No - RENAL Hx Chronic Kidney Disease: No - ENDOCRINE/METABOLIC Hx Endocrine Disorders: No - HEMATOLOGICAL/ONCOLOGICAL Hx Human Immunodeficiency Virus (HIV): No - INTEGUMENTARY Hx Dermatological Problems: No - MUSCULOSKELETAL/RHEUMATOLOGICAL Hx Arthritis: Yes - GASTROINTESTINAL Hx Gastrointestinal Disorders: No - GENITOURINARY/GYNECOLOGICAL Hx Sexually Transmitted Disorders: No - PSYCHIATRIC Hx Depression: Yes Hx Schizophrenia: Yes (on monthly invega) - SURGICAL HISTORY Hx Cholecystectomy: Yes (2 years ago) - ANESTHESIA Hx Anesthesia: Yes Hx Anesthesia Reactions: No Meds Allergies/Adverse Reactions: Allergies Allergy/AdvReac Type Severity Reaction Status Date / Time Penicillins Allergy Unknown RASH Verified 06/13/17 16:32 - Medications Medications: Current Medications Acetaminophen (Tylenol 325mg/10.15ml Ud) 500 mg PO Q6 PRN PRN Reason: Pain, severe (8-10) Amlodipine Besylate (Norvasc) 2.5 mg PO DAILY [facility] Last Admin: 09/23/17 08:55 Dose: 2.5 mg Atorvastatin Calcium (Lipitor) 40 mg PO HS [facility] Benztropine Mesylate (Cogentin) 0.5 mg PO DAILY [facility] Last Admin: 09/23/17 08:51 Dose: 0.5 mg Clonazepam (Klonopin) 0.5 mg PO DAILY [facility] Last Admin: 09/23/17 08:48 Dose: 0.5 mg Duloxetine HCl (Cymbalta) 60 mg PO DAILY [facility] Last Admin: 09/23/17 08:51 Dose: 60 mg Enoxaparin Sodium (Lovenox) 40 mg SC DAILY [facility] PRN Reason: Protocol Last Admin: 09/23/17 08:48 Dose: 40 mg Metoprolol Succinate (Toprol Xl) 25 mg PO BRK [facility] Last Admin: 09/23/17 08:54 Dose: 25 mg Montelukast Sodium (Singulair) 10 mg PO HS [facility] Naproxen (Naproxen) 500 mg PO BID [facility] Last Admin: 09/23/17 08:49 Dose: 500 mg Pantoprazole Sodium (Protonix Ec Tab) 40 mg PO DAILY [facility] Last Admin: 09/23/17 08:51 Dose: 40 mg Pregabalin (Lyrica) 50 mg PO BID [facility] Last Admin: 09/23/17 08:48 Dose: 50 mg Senna/Docusate Sodium (Senokot S 50 Mg-8.6 Mg) 2 tab PO DAILY [facility] Last Admin: 09/23/17 08:56 Dose: Not Given Tramadol HCl (Ultram) 50 mg PO TID PRN PRN Reason: Pain, moderate (4-7) Results - Vital Signs Recent Vital Signs: Last Vital Signs Temp 98.3 F 09/23/17 05:00 Pulse 87 09/23/17 08:55 Resp 17 09/23/17 05:00 BP 131/88 09/23/17 08:55 Pulse Ox 98 09/23/17 05:00 - Labs Result Diagrams: 09/22/17 12:40 09/22/17 12:40 Labs: Laboratory Results - last 24 hr 09/22/17 09/22/17 09/22/17 12:40 12:40 16:25 WBC 6.9 RBC 5.45 H Hgb 13.9 D Hct 42.7 MCV 78.2 L MCH 25.4 L MCHC 32.5 L RDW 14.8 H Plt Count 349 MPV 8.0 Neut % (Auto) 60.9 Lymph % (Auto) 31.4 [place] % (Auto) 7.0 Eos % (Auto) 0.1 Baso % (Auto) 0.6 Neut # (Auto) 4.2 Lymph # (Auto) 2.2 [place] # (Auto) 0.5 Eos # (Auto) 0.0 Baso # (Auto) 0.0 Sodium 143 Potassium 4.1 Chloride 104 Carbon Dioxide 27 Anion Gap 16 BUN 11 Creatinine 0.8 Est GFR ( Amer) > 60 Est GFR (Non-Af Amer) > 60 Random Glucose 89 Calcium 9.8 Total Bilirubin 0.6 AST 28 ALT 23 Alkaline Phosphatase 79 Troponin I < 0.0120 Total Protein 7.8 Albumin 4.3 Globulin 3.5 Albumin/Globulin Ratio 1.3 Triglycerides Cholesterol LDL Cholesterol Direct HDL Cholesterol Urine Color Urine Clarity Urine pH Ur Specific [place] Urine Protein Urine Glucose (UA) Urine Ketones Urine Blood Urine Nitrate Urine Bilirubin Urine Urobilinogen Ur Leukocyte Esterase Urine RBC (Auto) Urine Microscopic WBC Ur Squamous Epith Cells Alcohol, Quantitative < 10 09/22/17 09/22/17 16:35 17:35 WBC RBC Hgb Hct MCV MCH MCHC RDW Plt Count MPV Neut % (Auto) Lymph % (Auto) [place] % (Auto) Eos % (Auto) Baso % (Auto) Neut # (Auto) Lymph # (Auto) [place] # (Auto) Eos # (Auto) Baso # (Auto) Sodium Potassium Chloride Carbon Dioxide Anion Gap BUN Creatinine Est GFR ( Amer) Est GFR (Non-Af Amer) Random Glucose Calcium Total Bilirubin AST ALT Alkaline Phosphatase Troponin I Total Protein Albumin Globulin Albumin/Globulin Ratio Triglycerides 85 D Cholesterol 168 LDL Cholesterol Direct 92 HDL Cholesterol 35 Urine Color Straw Urine Clarity Clear Urine pH 7.0 Ur Specific [place] 1.009 Urine Protein Negative Urine Glucose (UA) Neg Urine Ketones 20 Urine Blood Negative Urine Nitrate Negative Urine Bilirubin Negative Urine Urobilinogen 0.2-1.0 Ur Leukocyte Esterase Small Urine RBC (Auto) 1 Urine Microscopic WBC 20 H Ur Squamous Epith Cells 1 Alcohol, Quantitative
--- NOTE | 2017-09-23 13:16 | CP.PCM.PN ---
Subjective - Date & Time of Evaluation Date of Evaluation: 09/23/17 Time of Evaluation: 08:55 - Subjective Subjective: Patient seen and examined today at bedside, NAD, c/o weakness of left arm and leg, and numbness of the tongue yesterday and was admitted, today states feeling better compared to yesterday, denies HAWKINS, N/V/D, abdominal pain, chest pain, or SOB. Objective - Vital Signs/Intake and Output Vital Signs (last 24 hours): Temp Pulse Resp BP Pulse Ox 98.4 F 85 18 134/88 99 09/23/17 12:38 09/23/17 12:38 09/23/17 12:38 09/23/17 12:38 09/23/17 12:38 - Medications Medications: Current Medications Acetaminophen (Tylenol 325mg/10.15ml Ud) 500 mg PO Q6 PRN PRN Reason: Pain, severe (8-10) Amlodipine Besylate (Norvasc) 2.5 mg PO DAILY [facility] Last Admin: 09/23/17 08:55 Dose: 2.5 mg Atorvastatin Calcium (Lipitor) 40 mg PO HS [facility] Benztropine Mesylate (Cogentin) 0.5 mg PO DAILY [facility] Last Admin: 09/23/17 08:51 Dose: 0.5 mg Clonazepam (Klonopin) 0.5 mg PO DAILY [facility] Last Admin: 09/23/17 08:48 Dose: 0.5 mg Duloxetine HCl (Cymbalta) 60 mg PO DAILY [facility] Last Admin: 09/23/17 08:51 Dose: 60 mg Enoxaparin Sodium (Lovenox) 40 mg SC DAILY [facility] PRN Reason: Protocol Last Admin: 09/23/17 08:48 Dose: 40 mg Metoprolol Succinate (Toprol Xl) 25 mg PO BRK [facility] Last Admin: 09/23/17 08:54 Dose: 25 mg Montelukast Sodium (Singulair) 10 mg PO HS [facility] Naproxen (Naproxen) 500 mg PO BID [facility] Last Admin: 09/23/17 08:49 Dose: 500 mg Pantoprazole Sodium (Protonix Ec Tab) 40 mg PO DAILY [facility] Last Admin: 09/23/17 08:51 Dose: 40 mg Pregabalin (Lyrica) 50 mg PO BID [facility] Last Admin: 09/23/17 08:48 Dose: 50 mg Quetiapine Fumarate (Seroquel) 100 mg PO [facility] Senna/Docusate Sodium (Senokot S 50 Mg-8.6 Mg) 2 tab PO DAILY [facility] Last Admin: 09/23/17 08:56 Dose: Not Given Tramadol HCl (Ultram) 50 mg PO TID PRN PRN Reason: Pain, moderate (4-7) - Labs Labs: 09/22/17 12:40 09/22/17 12:40 - Constitutional Appears: No Acute Distress - Head Exam Head Exam: ATRAUMATIC, NORMOCEPHALIC - Eye Exam Eye Exam: EOMI, PERRL - ENT Exam ENT Exam: Mucous Membranes Moist - Neck Exam Neck Exam: Full ROM - Respiratory Exam Respiratory Exam: Clear to Ausculation Bilateral. absent: Rales, Rhonchi, Wheezes - Cardiovascular Exam Cardiovascular Exam: REGULAR RHYTHM, +S1, +S2 - GI/Abdominal Exam GI & Abdominal Exam: Soft, Normal Bowel Sounds - Extremities Exam Extremities Exam: absent: Pedal Edema - Neurological Exam Neurological Exam: Alert, Awake, CN II-XII Intact, Oriented x3 Neuro motor strength exam: Left Upper Extremity: 5, Right Upper Extremity: 5, Left Lower Extremity: 4, Right Lower Extremity: 5 - Psychiatric Exam Psychiatric exam: Flat Affect, Normal Mood Additional comments: Patient denies being sad or having thoughts of suicide at this time - Skin Skin Exam: Normal Color, Warm Assessment and Plan - Assessment and Plan (Free Text) Assessment: 51 y/o female with Hx of Schitzoaffective disorder, Anxiety, Asthma, Chronic back pain and HTN, admitted yesterday to [facility] with c/o paresthesias of the left arm and leg and c/o numbness of the tongue, also the patient reported being depressed upon time of admission, with auditory hallucinations and suicides thoughts prior to admission. Today patient feels better, with less paresthesias on her keft side, still c/o numbness of tongue, VS wnl, chart and nursing notes reviewed, patient evaluated by psychiatry and neurology. Plan: Parasthesias - possibly a manifestations of her underlying psychiatry condition vs acute CVA - Head CT wnl - c/w ASA 81mg - Tele monitoring - Neurology consulted: will f/u recommendations - F/U Brain MRI w/wo contrast pending results to advance dispo - Atorvastin 40 po qd - PT/OT evaluate and treat HTN -Norvasc 2.5 po qd -Metoprolol succ 25 po qd -stable Depression w/ Active Suicidal Ideation -Psych consulted -d/c 1 to 1 observation as per psychiatry recomm -stable -denied suicidal ideation Schitzoaffective Disorder -denied auditory hallucinations -F/U psych reccs -c/w home med: Clonazepam -Seroquel 100 po qhs Pyuria -Asymptomatic, no fever or leukocytosis -F/U UCx pending Chronic Back Pain/Lumbar Radiculopathy -c/w home med: Tramadol prn -c/w home med: Lyrica -stable Asthma, mild, persistent -controlled -c/w home med Diet -Heart Healthy DVT ppx -Continuous SCDs -Lovenox 40 qd Code status -Full code
[2017-09-24] MEDS: Pantoprazole 40 mg EC Tab PO SCH (09:14)
[2017-09-24] MEDS: Enoxaparin 40 mg Syringe SC SCH (09:14)
[2017-09-24] MEDS: Naproxen 500 MG TAB PO SCH (09:14)
[2017-09-24] MEDS: Metoprolol Succinate 25 mg XL Tab PO SCH (09:15)
[2017-09-24] MEDS: Docusate-Senna 50 mg-8.6 mg Tab PO SCH (09:16)
[2017-09-24] MEDS ORDERED: Gadodiamide 287 MG/ML VIAL (15ML) IV ONE (09:34)
--- NOTE | 2017-09-24 09:36 | CARD ---
APPROVED REPORT EKG Measurement Heart [id number] <Conclusion> Normal sinus rhythm Nonspecific T wave abnormality Abnormal ECG
--- NOTE | 2017-09-24 10:23 | CP.PCM.PN ---
Subjective - Date & Time of Evaluation Date of Evaluation: 09/24/17 Time of Evaluation: 10:23 - Subjective Subjective: Ms. Ortiz was seen and examined at the bedside. She is alert, oriented in all spheres, soft spoken. She denies any headache, dizziness, nausea, or vomiting. She is able to ambulate to and from bed to bathroom with walker in steady gait. She further claims of numbness in her left side of the body with no weakness noted during assessment. There was no untoward events overnight. Objective - Vital Signs/Intake and Output Vital Signs (last 24 hours): Temp Pulse Resp BP Pulse Ox 97.9 F 105 H 18 131/88 98 09/24/17 08:00 09/24/17 09:16 09/24/17 08:00 09/24/17 09:16 09/24/17 08:00 - Medications Medications: Current Medications Acetaminophen (Tylenol 325mg/10.15ml Ud) 500 mg PO Q6 PRN PRN Reason: Pain, severe (8-10) Amlodipine Besylate (Norvasc) 2.5 mg PO DAILY [facility] Last Admin: 09/24/17 09:16 Dose: 2.5 mg Aspirin (Aspirin Chewable) 81 mg PO DAILY [facility] Last Admin: 09/23/17 21:53 Dose: 81 mg Atorvastatin Calcium (Lipitor) 40 mg PO HS [facility] Last Admin: 09/23/17 21:54 Dose: 40 mg Benztropine Mesylate (Cogentin) 0.5 mg PO DAILY [facility] Last Admin: 09/24/17 09:15 Dose: 0.5 mg Clonazepam (Klonopin) 0.5 mg PO DAILY [facility] Last Admin: 09/24/17 09:20 Dose: 0.5 mg Duloxetine HCl (Cymbalta) 60 mg PO DAILY [facility] Last Admin: 09/24/17 09:16 Dose: 60 mg Enoxaparin Sodium (Lovenox) 40 mg SC DAILY [facility] PRN Reason: Protocol Last Admin: 09/24/17 09:14 Dose: 40 mg Metoprolol Succinate (Toprol Xl) 25 mg PO BRK [facility] Last Admin: 09/24/17 09:15 Dose: 25 mg Montelukast Sodium (Singulair) 10 mg PO HS [facility] Last Admin: 09/23/17 21:54 Dose: 10 mg Naproxen (Naproxen) 500 mg PO BID [facility] Last Admin: 09/24/17 09:14 Dose: 500 mg Pantoprazole Sodium (Protonix Ec Tab) 40 mg PO DAILY [facility] Last Admin: 09/24/17 09:14 Dose: 40 mg Pregabalin (Lyrica) 50 mg PO BID [facility] Last Admin: 09/24/17 09:20 Dose: 50 mg Quetiapine Fumarate (Seroquel) 100 mg PO HS [facility] Last Admin: 09/23/17 21:54 Dose: 100 mg Senna/Docusate Sodium (Senokot S 50 Mg-8.6 Mg) 2 tab PO DAILY [facility] Last Admin: 09/24/17 09:16 Dose: Not Given Tramadol HCl (Ultram) 50 mg PO TID PRN PRN Reason: Pain, moderate (4-7) - Labs Labs: 09/22/17 12:40 09/22/17 12:40 - Constitutional Appears: No Acute Distress - Head Exam Head Exam: NORMAL INSPECTION - Eye Exam Pupil Exam: PERRL - Neurological Exam Neurological Exam: Alert, Awake, Oriented x3 Neuro motor strength exam: Left Upper Extremity: 4 (numbness), Right Upper Extremity: 4, Left Lower Extremity: 4 (numbness), Right Lower Extremity: 4 Additional comments: neurological unchanged from previous examination. Assessment and Plan (1) Left-sided weakness Assessment & Plan: Case discussed with Dr. Carrasco,continue medical treatment. Pending MRI of the brain to evaluate any brain pathology of her weakness, hypercoagulability studies. Recommend hydration, treat any electrolyte abnormalities. Status: Acute
--- NOTE | 2017-09-24 11:53 | MRI ---
PROCEDURE: MRI BRAIN WITH AND WITHOUT CONTRAST HISTORY: numbness of tongue, left arm numbness COMPARISON: None. TECHNIQUE: Multiplanar, multisequence MR images of the brain were obtained with and without intravenous contrast enhancement. FINDINGS: HEMORRHAGE: None DWI: No evidence of an acute or early subacute infarction. BRAIN PARENCHYMA: No mass,mass effect or edema. No atrophy or chronic microvascular ischemic changes. ENHANCEMENT: No abnormal intracranial enhancement. VENTRICLES: Unremarkable. No hydrocephalus. CRANIUM: Unremarkable. ORBITS: Grossly unremarkable. PARANASAL SINUSES/MASTOIDS: Clear VASCULAR SYSTEM: Skull base flow voids intact. OTHER FINDINGS: None . IMPRESSION: Unremarkable pre and post contrast enhanced MRI of the brain.
--- NOTE | 2017-09-24 14:36 | CP.PCM.PN ---
Subjective - Date & Time of Evaluation Date of Evaluation: 09/24/17 Time of Evaluation: 09:45 - Subjective Subjective: Patient seen and examined today at bedside, NAD, today c/o weakness of left arm and leg though states feeling better compared to yesterday, denies HAWKINS, N/V/D, abdominal pain, chest pain, or SOB, no neck pain today, states she feels her tongue numbed now only occasionally when she is eating. Objective - Vital Signs/Intake and Output Vital Signs (last 24 hours): Temp Pulse Resp BP Pulse Ox 98 F 84 18 119/80 97 09/24/17 12:14 09/24/17 12:14 09/24/17 12:14 09/24/17 12:14 09/24/17 12:14 - Medications Medications: Current Medications Acetaminophen (Tylenol 325mg/10.15ml Ud) 500 mg PO Q6 PRN PRN Reason: Pain, severe (8-10) Aspirin (Aspirin Chewable) 81 mg PO DAILY [facility] Last Admin: 09/23/17 21:53 Dose: 81 mg Atorvastatin Calcium (Lipitor) 40 mg PO HS [facility] Last Admin: 09/23/17 21:54 Dose: 40 mg Clonazepam (Klonopin) 0.5 mg PO DAILY [facility] Last Admin: 09/24/17 09:20 Dose: 0.5 mg Duloxetine HCl (Cymbalta) 60 mg PO DAILY [facility] Last Admin: 09/24/17 09:16 Dose: 60 mg Enoxaparin Sodium (Lovenox) 40 mg SC DAILY [facility] PRN Reason: Protocol Last Admin: 09/24/17 09:14 Dose: 40 mg Metoprolol Succinate (Toprol Xl) 25 mg PO BRK [facility] Last Admin: 09/24/17 09:15 Dose: 25 mg Montelukast Sodium (Singulair) 10 mg PO HS [facility] Last Admin: 09/23/17 21:54 Dose: 10 mg Naproxen (Naproxen) 500 mg PO BID [facility] Last Admin: 09/24/17 09:14 Dose: 500 mg Pantoprazole Sodium (Protonix Ec Tab) 40 mg PO DAILY [facility] Last Admin: 09/24/17 09:14 Dose: 40 mg Pregabalin (Lyrica) 50 mg PO BID [facility] Last Admin: 09/24/17 09:20 Dose: 50 mg Quetiapine Fumarate (Seroquel) 100 mg PO HS [facility] Last Admin: 09/23/17 21:54 Dose: 100 mg Senna/Docusate Sodium (Senokot S 50 Mg-8.6 Mg) 2 tab PO DAILY [facility] Last Admin: 09/24/17 09:16 Dose: Not Given Tramadol HCl (Ultram) 50 mg PO TID PRN PRN Reason: Pain, moderate (4-7) - Labs Labs: 09/22/17 12:40 09/22/17 12:40 - Constitutional Appears: No Acute Distress - Head Exam Head Exam: ATRAUMATIC, NORMOCEPHALIC - Eye Exam Eye Exam: EOMI, PERRL - ENT Exam ENT Exam: Mucous Membranes Moist - Neck Exam Neck Exam: Full ROM, Normal Inspection. absent: Tenderness - Respiratory Exam Respiratory Exam: Clear to Ausculation Bilateral. absent: Rales, Rhonchi, Wheezes - Cardiovascular Exam Cardiovascular Exam: REGULAR RHYTHM, +S1, +S2. absent: JVD - GI/Abdominal Exam GI & Abdominal Exam: Soft, Normal Bowel Sounds. absent: Tenderness - Extremities Exam Extremities Exam: absent: Pedal Edema - Neurological Exam Neurological Exam: Alert, Awake, CN II-XII Intact, Oriented x3 Neuro motor strength exam: Left Upper Extremity: 4, Right Upper Extremity: 5, Left Lower Extremity: 4, Right Lower Extremity: 5 - Psychiatric Exam Psychiatric exam: Flat Affect, Normal Mood - Skin Skin Exam: Normal Color, Warm Assessment and Plan - Assessment and Plan (Free Text) Assessment: 51 y/o female with Hx of Schitzoaffective disorder, Anxiety, Asthma, Chronic back pain and HTN, admitted for eval of acute c/o paresthesias of the left arm and leg and c/o numbness of the tongue. Plan: Parasthesias - possibly a manifestations of her underlying psychiatry condition vs acute CVA - Head CT wnl - c/w ASA 81mg - Tele monitoring - Atorvastin 40 po qd - Brain MRI w/wo contrast with impression report: Unremarkable pre and post enhanced MRI of brain ( see full report) - Neuro consult on board, appreciate recms - PT/OT evaluate and treat HTN -Metoprolol succ 25 po qd -stable Depression w/ Active Suicidal Ideation -Psych consulted -resolved/stable -denied suicidal ideation Schitzoaffective Disorder -denied auditory hallucinations -Psych consult on board -c/w home med: Clonazepam -Seroquel 100 po qhs Pyuria -Asymptomatic, no fever or leukocytosis -F/U UCx pending Chronic Back Pain/Lumbar Radiculopathy -c/w home med: Tramadol prn -c/w home med: Lyrica -stable Asthma, mild, persistent -controlled -c/w home med Diet -Heart Healthy DVT ppx -Continuous SCDs -Lovenox 40 qd
[2017-09-24 17:00] VITALS: BP 109/73; PULSE 76; RESP 20; TEMP 98.1; O2SAT 98
[2017-09-24 21:37] LABS: FOLATE 10.8 ng/mL
== END 2017-09-24 17:00 | disposition home or self-care (01) ==
LOC: H.ER 11:22 → H.ERHOLD 15:25 → H.TEL 18:24
PROVIDERS: ADMIT Family Medicine Geriatric Medicine; ATTEND Family Medicine Geriatric Medicine
DX: R20.2 Paresthesia of skin (principal); R53.1 Weakness; F25.9 Schizoaffective disorder, unspecified; F32.9 Major depressive disorder, single episode, unspecified; F41.9 Anxiety disorder, unspecified; F60.9 Personality disorder, unspecified; J45.30 Mild persistent asthma, uncomplicated; N39.0 Urinary tract infection, site not specified; G47.30 Sleep apnea, unspecified; G89.29 Other chronic pain; I10 Essential (primary) hypertension; M54.16 Radiculopathy, lumbar region; R45.851 Suicidal ideations; Z79.1 Long term (current) use of non-steroidal anti-inflammatories (NSAID); Z79.82 Long term (current) use of aspirin; Z86.73 Personal history of transient ischemic attack (TIA), and cerebral infarction without residual deficits
CPT/HCPCS: 36415; 70450; 70553; 71045; 72100; 72125; 80053; 80061; 81003; 82306; 82607; 82746; 83036; 84484; 85025; 87086; 93005; 97162; 97166; 99283; A9579; G0378; G0480; G8978; G8979; G8980; G8987; G8988; G8989; J1650; J1885; J7030